=== PATIENT | male | born 1985 | race Caucasian/White ===

== ENCOUNTER 2017-01-30 10:46 | Emergency (ER) | payer SELFPAY ==
[~2017-01-30] VITALS: Ht 180.3 cm; Wt 75.0 kg
[~2017-01-30 10:46] MED LIST: BACT800T5 PO; CEPH500C3 PO; IBUP800T23 PO
[2017-01-30 10:50] VITALS: BP 162/88; PULSE 82; RESP 12; TEMP 98.8; O2SAT 95
[2017-01-30] MEDS ORDERED: SODIUM CHLOR 0.9% 1000 ML INJ 1,000 ML IV ONE (11:17)
[2017-01-30] MEDS ORDERED: ONDANSETRON HCL 4 MG/2 ML VIAL IVP ONE (11:30)
[2017-01-30] MEDS ORDERED: SODIUM CHLORIDE 0.9% FLUSH 10 ML FLUSH IVF PRN (11:30)
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
[2017-01-30 11:32] VITALS: BP 142/81; PULSE 75; RESP 12; TEMP 98.1; O2SAT 96
[2017-01-30 12:00] LABS: AUTOMATED NEUTROPHIL # 8.3 TH/MM3 (1.8-7.7); BASOPHIL % 0.2 % (0.0-2.0); EOSINOPHIL # 0.6 TH/MM3 (0-0.4); EOSINOPHIL % 4.8 % (0.0-4.0); HEMATOCRIT 38.5 % (39.0-51.0); HEMO FLAGS DIFF FINAL; LYMPH % 15.2 % (9.0-44.0); LYMPHOCYTE # 1.8 TH/MM3 (1.0-4.8); MEAN CELL VOLUME 92.1 FL (80.0-100.0); MEAN CORPUSCULAR HGB CONC 35.8 % (32.0-36.0); NEUT % 68.8 % (16.0-70.0); PLATELET COUNT 209 TH/MM3 (150-450); RED BLOOD COUNT 4.18 MIL/MM3 (4.50-5.90); RED CELL DISTRIBUTION WIDTH 12.6 % (11.6-17.2); WHITE BLOOD COUNT 12.1 TH/MM3 (4.0-11.0)
--- NOTE | 2017-01-30 12:09 | RADRPT ---
EXAM DATE/TIME: 01/30/2017 11:30 [facility] COMPARISON: CHEST SINGLE AP, September 10, 2015, 5:20. INDICATIONS : Shortness of breath. MEDICAL HISTORY : None. SURGICAL HISTORY : None. ENCOUNTER: Initial ACUITY: 1 day PAIN SCORE: Non-responsive. LOCATION: Bilateral chest FINDINGS: A single view of the chest demonstrates the lungs to be symmetrically aerated without evidence of mas s, infiltrate or effusion. The cardiomediastinal contours are unremarkable. Osseous structures are intact. CONCLUSION: No acute disease. Angus Villarreal MD on January 30, 2017 at 12:07 Board Certified Radiologist. This report was verified electronically.
[2017-01-30 12:23] LABS: ANION GAP 5 MEQ/L (5-15); AST (GOT) 119 U/L (15-37); BICARBONATE 31.1 MEQ/L (21.0-32.0); BLOOD UREA NITROGEN 12 MG/DL (7-18); CHLORIDE 92 MEQ/L (98-107); GLOMERULAR FILTRATION RATE 101 ML/MIN (>89); POTASSIUM 3.3 MEQ/L (3.5-5.1); SODIUM (NA) 128 MEQ/L (136-145)
[2017-01-30 12:24] LABS: ALT (GPT) 135 U/L (12-78)
[2017-01-30 12:26] LABS: ALKALINE PHOSPHATASE 60 U/L (45-117); TOTAL BILIRUBIN ADULT 0.8 MG/DL (0.2-1.0)
[2017-01-30 12:43] LABS: ACETAMINOPHEN LESS THAN 3.0 MCG/ML (10.0-30.0); ALCOHOL LESS THAN 3 MG/DL (0-5)
[2017-01-30 12:53] LABS: BLOOD, URINE NEG (NEG); GLUCOSE,URINE NEG (NEG); KETONE, URINE NEG (NEG); MUCUS URINE FEW /lpf (OCC); NITRITE,URINE NEG (NEG); PH, URINE 5.5 (5.0-8.5); URINE COLOR YELLOW (YELLW/STRAW)
[2017-01-30 12:55] LABS: COMMENT (UR) CULT NOT INDICATED; CULTURE IF INDICATED CULT NOT INDICATED
[2017-01-30] MEDS ORDERED: POTASSIUM CHLOR 20 MEQ PREMIX 100 ML IV ONE (13:00)
--- NOTE | 2017-01-30 13:51 | PD ---
Data Data Last Documented VS Vital Signs Date Time Temp Pulse Resp B/P Pulse Ox O2 Delivery O2 Flow Rate FiO2 01/30/17 11:34 78 12 01/30/17 11:33 96 Nasal Cannula 2 01/30/17 11:32 98.1 142/81 Orders Electrocardiogram (01/30/17 11:17) Complete Blood Count With Diff (01/30/17 11:17) Comprehensive Metabolic Panel (01/30/17 11:17) Urinalysis - C+S If Indicated (01/30/17 11:17) Chest, Single Ap (01/30/17 11:17) Iv Access Insert/Monitor (01/30/17 11:17) Cath For Specimen (01/30/17 11:17) Ecg Monitoring (01/30/17 11:17) Oximetry (01/30/17 11:17) Oxygen Administration (01/30/17 11:17) Psych Screen (01/30/17 11:17) Ondansetron Inj (Zofran Inj) (01/30/17 11:30) Sodium Chloride 0.9% Flush (Ns Flush) (01/30/17 11:30) Sodium Chlor 0.9% 1000 Ml Inj (Ns 1000 M (01/30/17 11:17) Drug Screen, Random Urine (01/30/17 11:17) Alcohol (Ethanol) (01/30/17 11:17) Salicylates (Aspirin) (01/30/17 11:17) Tylenol (Acetaminophen) (01/30/17 11:17) Diet Regular Basic (01/30/17 Lunch) Potassium Chlor 20 Meq Premix (Kcl 20 Me (01/30/17 13:00) Blood Culture (01/30/17 12:47) Labs Laboratory Tests Test 01/30/17 01/30/17 11:46 12:10 White Blood Count 12.1 TH/MM3 Red Blood Count 4.18 MIL/MM3 Hemoglobin 13.8 GM/DL Hematocrit 38.5 % Mean Corpuscular Volume 92.1 FL Mean Corpuscular Hemoglobin 33.0 PG Mean Corpuscular Hemoglobin 35.8 % Concent Red Cell Distribution Width 12.6 % Platelet Count 209 TH/MM3 Mean Platelet Volume 8.9 FL Neutrophils (%) (Auto) 68.8 % Lymphocytes (%) (Auto) 15.2 % Monocytes (%) (Auto) 11.0 % Eosinophils (%) (Auto) 4.8 % Basophils (%) (Auto) 0.2 % Neutrophils # (Auto) 8.3 TH/MM3 Lymphocytes # (Auto) 1.8 TH/MM3 Monocytes # (Auto) 1.3 TH/MM3 Eosinophils # (Auto) 0.6 TH/MM3 Basophils # (Auto) 0.0 TH/MM3 CBC Comment DIFF FINAL Differential Comment Sodium Level 128 MEQ/L Potassium Level 3.3 MEQ/L Chloride Level 92 MEQ/L Carbon Dioxide Level 31.1 MEQ/L Anion Gap 5 MEQ/L Blood Urea Nitrogen 12 MG/DL Creatinine 0.88 MG/DL Estimat Glomerular Filtration 101 ML/MIN Rate Random Glucose 106 MG/DL Calcium Level 8.4 MG/DL Total Bilirubin 0.8 MG/DL Aspartate Amino Transf 119 U/L (AST/SGOT) Alanine Aminotransferase 135 U/L (ALT/SGPT) Alkaline Phosphatase 60 U/L Total Protein 7.4 GM/DL Albumin 3.7 GM/DL Salicylates Level LESS THAN 1.7 MG/DL Acetaminophen Level LESS THAN 3.0 MCG/ML Ethyl Alcohol Level LESS THAN 3 MG/DL Urine Color YELLOW Urine Turbidity CLEAR Urine pH 5.5 Urine Specific [place] 1.045 Urine Protein 30 mg/dL Urine Glucose (UA) NEG mg/dL Urine Ketones NEG mg/dL Urine Occult Blood NEG Urine Nitrite NEG Urine Bilirubin NEG Urine Urobilinogen LESS THAN 2.0 MG/DL Urine Leukocyte Esterase NEG Urine RBC 1 /hpf Urine WBC 2 /hpf Urine Mucus FEW /lpf Microscopic Urinalysis Comment CULT NOT INDICATED Urine Opiates Screen POS Urine Barbiturates Screen NEG Urine Amphetamines Screen NEG Urine Benzodiazepines Screen NEG Urine Cocaine Screen POS Urine Cannabinoids Screen NEG MDM Supervised Visit with ALFREDITO: Yes Narrative Course The history, exam, and medical decision-making in the associated mid-level provider note were completed with my assistance. I reviewed and agree with the findings presented. I attest that I had a [id number] encounter with the patient on the same day, and personally performed and documented my assessment and findings in the medical record. *My assessment and Findings: 31-year-old man, suicidal recent illicit drug use, little bit sedated but stable. Medically clear for psychiatric evaluation. Diagnosis Primary Impression: Medical clearance for psychiatric admission Additional Impressions: Substance abuse Cocaine abuse Suicidal thoughts Scripts No Active Prescriptions or Reported Meds Condition: Ilia Webster MD Jan 30, 2017 13:51
[2017-01-30 14:15] VITALS: BP 126/80; PULSE 79; RESP 14; O2SAT 100
[2017-01-30 17:13] VITALS: BP 137/75; PULSE 78; RESP 18; O2SAT 98
[2017-01-30 19:25] VITALS: BP 127/63; PULSE 72; RESP 16; O2SAT 97
[2017-01-30 22:41] VITALS: BP 123/59; PULSE 63; RESP 14; O2SAT 97
[2017-01-31 03:25] VITALS: BP 123/60; PULSE 55; RESP 16; O2SAT 97
[2017-01-31 06:19] VITALS: BP 130/67; PULSE 56; RESP 16; O2SAT 100
[2017-01-31 07:20] VITALS: BP 123/60; PULSE 60; RESP 16; O2SAT 98
--- NOTE | 2017-01-31 17:59 | EKG ---
Date Performed: 01/30/2017 Time Performed: 11:40:53 PTAGE: 31 years EKG: Sinus rhythm POSSIBLE RIGHT VENTRICULAR CONDUCTION DELAY NONSPECIFIC T-WAVE ABNORMALITY Anterior T wave abnormali ties are significantly changed from prior tracing Clinical correlation is recommended BORDERLINE ECG PREVIOUS TRACING : 09/19/2015 12.36 DOCTOR: Shai Quintanilla Interpretating Date/Time 01/31/2017 17:57:56
== END 2017-01-31 10:43 | disposition home or self-care (01) ==
LOC: NEPD 10:46
DX: F14.10 Cocaine abuse, uncomplicated (principal); F19.10 Other psychoactive substance abuse, uncomplicated; R45.851 Suicidal ideations; D72.829 Elevated white blood cell count, unspecified; F31.9 Bipolar disorder, unspecified; F41.9 Anxiety disorder, unspecified; R94.31 Abnormal electrocardiogram [ECG] [EKG]; F17.200 Nicotine dependence, unspecified, uncomplicated
CPT/HCPCS: 71010; 80053; 80307; 81001; 85025; 87040; 93005; 96361; 96365; 96375; 99285; J2405; J3480; J7030; P9612

== ENCOUNTER 2017-04-23 11:27 | Emergency (ER) | payer SELFPAY ==
[~2017-04-23] VITALS: Ht 175.3 cm; Wt 60.0 kg
[2017-04-23 11:44] VITALS: BP 135/90; PULSE 92; RESP 18; TEMP 97.8; O2SAT 98; O2SAT 99
[2017-04-23] MEDS ORDERED: NALOXONE HCL 2 MG/2 ML VIAL IM ONE (11:45)
[2017-04-23] MEDS ORDERED: SODIUM CHLORIDE 0.9% FLUSH 10 ML FLUSH IVF PRN (11:45)
[2017-04-23] MEDS ORDERED: NALOXONE HCL 2 MG/2 ML VIAL ONE (11:45)
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
[2017-04-23 12:08] LABS: AUTOMATED NEUTROPHIL # 6.4 TH/MM3 (1.8-7.7); BASOPHIL % 0.4 % (0.0-2.0); EOSINOPHIL # 0.2 TH/MM3 (0-0.4); EOSINOPHIL % 1.8 % (0.0-4.0); HEMATOCRIT 43.1 % (39.0-51.0); HEMO FLAGS DIFF FINAL; LYMPH % 17.4 % (9.0-44.0); LYMPHOCYTE # 1.5 TH/MM3 (1.0-4.8); MEAN CELL VOLUME 93.8 FL (80.0-100.0); MEAN CORPUSCULAR HEMOGLOBIN 32.3 PG (27.0-34.0); MEAN CORPUSCULAR HGB CONC 34.5 % (32.0-36.0); MONO % 7.9 % (0.0-8.0); NEUT % 72.5 % (16.0-70.0); PLATELET COUNT 205 TH/MM3 (150-450); RED BLOOD COUNT 4.59 MIL/MM3 (4.50-5.90); RED CELL DISTRIBUTION WIDTH 12.5 % (11.6-17.2); WHITE BLOOD COUNT 8.9 TH/MM3 (4.0-11.0)
[2017-04-23 12:33] LABS: ANION GAP 9 MEQ/L (5-15); BICARBONATE 26.7 MEQ/L (21.0-32.0); BLOOD UREA NITROGEN 10 MG/DL (7-18); CHLORIDE 102 MEQ/L (98-107); GLOMERULAR FILTRATION RATE 88 ML/MIN (>89); POTASSIUM 3.4 MEQ/L (3.5-5.1); SODIUM (NA) 138 MEQ/L (136-145)
[2017-04-23 12:36] LABS: ALCOHOL LESS THAN 3 MG/DL (0-5)
== END 2017-04-23 21:30 | disposition left against medical advice (07) ==
LOC: NEPC 11:27
DX: F11.10 Opioid abuse, uncomplicated (principal); F17.200 Nicotine dependence, unspecified, uncomplicated
CPT/HCPCS: 80048; 80307; 85025; 96372; 99284; J2310

== ENCOUNTER 2017-09-23 02:46 | Emergency (ER) | payer OTHER ==
[~2017-09-23] VITALS: Ht 180.3 cm; Wt 77.2 kg
[2017-09-23 03:01] VITALS: BP 153/85; PULSE 87; RESP 20; TEMP 98; O2SAT 98
[2017-09-23] MEDS ORDERED: CEPHALEXIN MONOHYDRATE 500 MG CAP PO ONE (03:30)
[2017-09-23] MEDS ORDERED: SULFAMETHOXAZOLE-TRIMETHOPRIM DS 800-160 MG TAB PO ONE (03:30)
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
--- NOTE | 2017-09-23 05:25 | RADRPT ---
EXAM DATE/TIME: 09/23/2017 04:26 [facility] COMPARISON: No previous studies available for comparison. INDICATIONS : Left arm swelling. MEDICAL HISTORY : Hepatitis C. Prostatitis. Urinary retention. Bipolar disorder. Anxiety. IVDU. SURGICAL HISTORY : Right leg wound repair. Facial repair. ENCOUNTER: Initial ACUITY: 1 day PAIN SCORE: 6/10 LOCATION: Left arm. AREA EVALUATED: Left medial prox forearm. FINDINGS: MASSES: None. FLUID COLLECTIONS: None. OTHER: Negative. CONCLUSION: No evidence of abscess Chris Darby MD on September 23, 2017 at 5:22 Board Certified Radiologist. This report was verified electronically.
[2017-09-23] MEDS ORDERED: IBUP1TAB7 PO (05:36)
[2017-09-23] MEDS ORDERED: CEPH-460 PO (05:36)
--- NOTE | 2017-09-23 05:36 | PD ---
Data Data Last Documented VS Vital Signs Date Time Temp Pulse Resp B/P (MAP) Pulse Ox O2 Delivery O2 Flow Rate FiO2 09/23/17 03:01 98.0 87 20 153/85 (107) 98 Orders Orders Us Arm Soft Tissue (09/23/17 ) Sulfamet-Trimeth Ds 800-160 Mg (Bactrim (09/23/17 03:30) Cephalexin (Keflex) (09/23/17 03:30) Ed Discharge Order (09/23/17 05:36) MDM Supervised Visit with ALFREDITO: Yes Narrative Course I, Dr. Fields, have reviewed the advance practice practitioner's documentation and am in agreement, met with the patient face to face, made the diagnosis, and the medical decision making was done by me. *My assessment and Findings: Patient had been seen by me in addition to Kimberly LEBRON, the patient has some acute onset swelling after injecting himself with IV drugs tonight. I do not appreciate this is an abscess and aneurysm or pseudoaneurysm likely this is hematoma from some minor blood vessel damage. Pulses motor and sensory intact distally in all 4 extremities. Ultrasound is reassuring. Discussed symptomatic management return to ED criteria. He is stable for discharge. Scripts Ibuprofen (Ibuprofen) 800 Mg Tab 800 MG PO Q6HR Y for PAIN, #40 TAB 0 Refills Prov: Kimberly Chance 09/23/17 Cephalexin (Keflex) 500 Mg Cap 500 MG PO Q12H for Infection for 7 Days, #14 CAP 0 Refills Prov: Kimberly Chance 09/23/17 Disposition: 01 DISCHARGE HOME Condition: Stable Gil Fields MD Sep 23, 2017 05:36
== END 2017-09-23 05:45 | disposition home or self-care (01) ==
LOC: NEPD 02:46
DX: T14.8XXA Other injury of unspecified body region, initial encounter (principal); M79.632 Pain in left forearm; M79.605 Pain in left leg; F14.10 Cocaine abuse, uncomplicated; F11.10 Opioid abuse, uncomplicated; X58.XXXA Exposure to other specified factors, initial encounter
CPT/HCPCS: 76882

== ENCOUNTER 2017-09-23 22:46 | Emergency (ER) | payer OTHER ==
[~2017-09-23] VITALS: Ht 180.3 cm; Wt 77.0 kg
[~2017-09-23 22:46] MED LIST changes: -BACT800T5 PO; +CEPH-460 PO; -CEPH500C3 PO; +IBUP1TAB7 PO; -IBUP800T23 PO
[2017-09-23 23:48] VITALS: BP 163/89; PULSE 97; RESP 20; TEMP 98.2; O2SAT 97
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
[2017-09-24] MEDS ORDERED: SODIUM CHLORIDE 0.9% FLUSH 10 ML FLUSH IV FLUSH PRN (00:30)
[2017-09-24 00:35] LABS: AUTOMATED NEUTROPHIL # 7.7 TH/MM3 (1.8-7.7); BASOPHIL % 0.4 % (0.0-2.0); EOSINOPHIL # 0.7 TH/MM3 (0-0.4); EOSINOPHIL % 6.5 % (0.0-4.0); HEMATOCRIT 40.9 % (39.0-51.0); HEMOGLOBIN 14.2 GM/DL (13.0-17.0); LYMPH % 16.9 % (9.0-44.0); LYMPHOCYTE # 1.9 TH/MM3 (1.0-4.8); MEAN CELL VOLUME 90.5 FL (80.0-100.0); MEAN CORPUSCULAR HEMOGLOBIN 31.5 PG (27.0-34.0); MEAN CORPUSCULAR HGB CONC 34.8 % (32.0-36.0); MEAN PLATELET VOLUME 8.2 FL (7.0-11.0); MONO % 6.8 % (0.0-8.0); MONOCYTE # 0.8 TH/MM3 (0-0.9); NEUT % 69.4 % (16.0-70.0); PLATELET COUNT 221 TH/MM3 (150-450); RED BLOOD COUNT 4.52 MIL/MM3 (4.50-5.90); RED CELL DISTRIBUTION WIDTH 13.3 % (11.6-17.2); WHITE BLOOD COUNT 11.1 TH/MM3 (4.0-11.0)
[2017-09-24 00:44] LABS: PROTHROMBIN TIME - PATIENT 10.5 SEC (9.8-11.6)
[2017-09-24 00:52] LABS: BICARBONATE 30.1 MEQ/L (21.0-32.0); CREATININE 1.11 MG/DL (0.60-1.30)
[2017-09-24] MEDS ORDERED: IOHEXOL 350 MG/ML 10 ML VIAL (for RAD DIAG) IVCONTRAST ONE (00:55)
--- NOTE | 2017-09-24 02:00 | RADRPT ---
EXAM DATE/TIME: 09/24/2017 01:42 [facility] COMPARISON: No previous studies available for comparison. INDICATIONS : Left medial elbow pain and swelling. Possible foreign body. MEDICAL HISTORY : None. SURGICAL HISTORY : None. ENCOUNTER: Initial ACUITY: 1 day PAIN SCORE: 8/10 LOCATION: Left elbow. FINDINGS: There is a slightly less than 1 cm long needle fragment retained in the medial volar soft tissues of the left elbow region just superficial to the distal aspect of the medial epicondyle. The underlying bony elements are intact. There is mild soft tissue swelling. CONCLUSION: Needle in the superficial soft tissues of the medial volar left elbow Chris Darby MD on September 24, 2017 at 1:56 Board Certified Radiologist. This report was verified electronically.
--- NOTE | 2017-09-24 02:02 | RADRPT ---
EXAM DATE/TIME: 09/24/2017 00:47 [facility] COMPARISON: No previous studies available for comparison. INDICATIONS : Left arm swelling. Evaluate for abscess. IV CONTRAST: 75 cc Omnipaque 350 (iohexol) IV RADIATION DOSE: 4.97 CTDIvol (mGy) MEDICAL HISTORY : Hepatitis C. IV drug abuse. SURGICAL HISTORY : None. ENCOUNTER: Initial ACUITY: 1 week PAIN SCALE: 10/10 LOCATION: Left elbow. TECHNIQUE: Volumetric scanning of the elbow was performed. Using automated exposure control and adjustment of t he mA and/or kV according to patient size, radiation dose was kept as low as reasonably achievable to obtain optimal diagnostic quality images. DICOM format image data is available electronically for r eview and comparison. FINDINGS: BONES: No evidence of fracture. Alignment is within normal limits. JOINTS: No evidence of joint narrowing or effusion. SOFT TISSUES: There is a needle in the superficial subcutaneous tissues of the medial volar elbow region at about t he level of the distal aspect of the medial upper condyle. There is prominent cellulitic change in th e soft tissues in this region and extending down into the forearm. No evidence of abscess. CONCLUSION: Foreign body and cellulitis. No abscess. Chris Darby MD on September 24, 2017 at 1:58 Board Certified Radiologist. This report was verified electronically.
[2017-09-24] MEDS ORDERED: PIPERACIL-TAZO 4.5 GM PREMIX 100 ML IV ONE (02:15)
[2017-09-24] MEDS ORDERED: VANCOMYCIN INJ 1,000 MG in SODIUM CHLOR 0.9% 250 ML INJ 250 ML IV ONE (02:15)
== END 2017-09-24 02:20 | disposition left against medical advice (07) ==
LOC: NEPE 22:46
DX: M79.5 Residual foreign body in soft tissue (principal); L03.113 Cellulitis of right upper limb; F17.200 Nicotine dependence, unspecified, uncomplicated; F14.10 Cocaine abuse, uncomplicated; F11.10 Opioid abuse, uncomplicated
CPT/HCPCS: 73070; 73201; 80048; 83605; 85025; 85610; 85730; 96374; 99285; J2543; Q9967

== ENCOUNTER 2017-09-24 22:29 | Inpatient (IN) | payer OTHER ==
[~2017-09-24] VITALS: Ht 180.3 cm; Wt 72.0 kg
[2017-09-24 22:57] VITALS: BP 151/66; PULSE 86; RESP 15; TEMP 98; O2SAT 97
[2017-09-25] VITALS (10 sets, daily range): BP systolic 126–157; BP diastolic 6–87; PULSE 62–95; RESP 12–20; TEMP 97.4–98.7; O2SAT 92–100
[2017-09-25] MEDS ORDERED: SODIUM CHLOR 0.9% 1000 ML INJ 1,000 ML IV ONE (00:54)
[2017-09-25] MEDS ORDERED: PIPERACIL-TAZO 4.5 GM PREMIX 100 ML IV ONE (01:00)
[2017-09-25] MEDS ORDERED: VANCOMYCIN INJ 1,000 MG in SODIUM CHLOR 0.9% 250 ML INJ 250 ML IV ONE (01:00)
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
[2017-09-25 02:48] LABS: AUTOMATED NEUTROPHIL # 4.4 TH/MM3 (1.8-7.7); BASOPHIL # 0.1 TH/MM3 (0-0.2); BASOPHIL % 0.7 % (0.0-2.0); EOSINOPHIL # 0.8 TH/MM3 (0-0.4); EOSINOPHIL % 9.5 % (0.0-4.0); HEMATOCRIT 39.1 % (39.0-51.0); HEMOGLOBIN 13.3 GM/DL (13.0-17.0); LYMPH % 23.8 % (9.0-44.0); LYMPHOCYTE # 1.9 TH/MM3 (1.0-4.8); MEAN CELL VOLUME 91.2 FL (80.0-100.0); MEAN CORPUSCULAR HEMOGLOBIN 30.9 PG (27.0-34.0); MEAN CORPUSCULAR HGB CONC 33.9 % (32.0-36.0); MEAN PLATELET VOLUME 8.6 FL (7.0-11.0); MONO % 12.1 % (0.0-8.0); NEUT % 53.9 % (16.0-70.0); PLATELET COUNT 248 TH/MM3 (150-450); RED BLOOD COUNT 4.29 MIL/MM3 (4.50-5.90); RED CELL DISTRIBUTION WIDTH 14.1 % (11.6-17.2); WHITE BLOOD COUNT 8.1 TH/MM3 (4.0-11.0)
[2017-09-25 03:03] LABS: INTERNATIONAL NORMALIZED RATIO 1.1 RATIO; PROTHROMBIN TIME - PATIENT 10.7 SEC (9.8-11.6)
[2017-09-25 03:12] LABS: ALBUMIN 3.3 GM/DL (3.4-5.0); ALT (GPT) 140 U/L (12-78); AST (GOT) 79 U/L (15-37); BICARBONATE 29.9 MEQ/L (21.0-32.0); BLOOD UREA NITROGEN 15 MG/DL (7-18); CHLORIDE 103 MEQ/L (98-107); CREATININE 1.09 MG/DL (0.60-1.30); GLOMERULAR FILTRATION RATE 78 ML/MIN (>89); GLUCOSE,RANDOM 115 MG/DL (74-106); SODIUM (NA) 140 MEQ/L (136-145)
[2017-09-25 03:15] LABS: ALKALINE PHOSPHATASE 67 U/L (45-117); TOTAL BILIRUBIN ADULT 0.4 MG/DL (0.2-1.0); TOTAL PROTEIN 7.9 GM/DL (6.4-8.2)
[2017-09-25] MEDS ORDERED: MAGNESIUM HYDROXIDE SUSP 30 ML CUP PO PRN (03:30)
[2017-09-25] MEDS ORDERED: SODIUM CHLORIDE 0.9% FLUSH 10 ML FLUSH IV FLUSH PRN (03:30)
[2017-09-25] MEDS ORDERED: BISACODYL 10 MG SUPP RECTAL PRN (03:30)
[2017-09-25] MEDS ORDERED: ONDANSETRON HCL 4 MG/2 ML VIAL IVP PRN (03:30)
[2017-09-25] MEDS ORDERED: SENNOSIDES 8.6 MG TAB PO PRN (03:30)
[2017-09-25] MEDS ORDERED: ACETAMINOPHEN 325 MG TAB PO PRN (03:30)
[2017-09-25] MEDS ORDERED: NALOXONE HCL 0.4 MG/ML AMP IV PUSH PRN (03:30)
[2017-09-25] MEDS ORDERED: Vancomycin Consult Pharmacy 1 EA OTHER SCH (03:30)
[2017-09-25] MEDS ORDERED: LACTULOSE SYRUP 20 GM/30 ML CUP PO PRN (03:30)
[2017-09-25] MEDS: SODIUM CHLOR 0.9% 1000 ML INJ 1,000 ML IV SCH ×3 (04:57→23:13)
[2017-09-25] MEDS: SODIUM CHLORIDE 0.9% FLUSH 10 ML FLUSH IV FLUSH SCH ×2 (09:09→23:13)
[2017-09-25] MEDS: PIPERACIL-TAZO 3.375 GM PREMIX 50 ML IV SCH ×3 (09:11→18:17)
--- NOTE | 2017-09-25 11:54 | HHI.HP ---
HPI Service [facility] Hospitalists Primary Care Physician No Primary Care Physician Admission Diagnosis Left forearm cellulitis with foreign body, IV drug abuse Diagnoses: Chief Complaint: Left arm pain, swelling, redness Travel History International Travel<30 Days: No Contact w/Intl Traveler <30 Da: No Traveled to Known Affected Are: No History of Present Illness Written by Liberty Heredia, acting as scribe for Dr. Babin on 09/25/17 at 11: 46. This is a 32yo male with PMHX of IVDU, previous staph infection, Hep C and bipolar disorder who presented to [facility] ED with complaints of left arm swelling, redness and pain x 4 days. He describes the pain as constant sharpness as well as deep throbbing ache. Apparently, patient was seen in the ED yesterday and diagnosed with a retained needle in the left forearm as well as cellulitis. He was advised to be admitted for IV antibiotics at that time but however decided to leave AMA.. He has returned today for IV antibiotic therapy and possible admission. He endorses fever. He reports chest pain and shortness of breath that he attributes to anxiety. On the ED yesterday, patient has CT of left forearm performed which revealed foreign body as well as cellulitis, no abscess. Review of Systems Except as stated in HPI: all other systems reviewed are Neg Past Family Social History Past Medical History Left hand cellulitis secondary to IVDU Hepatitis C Bipolar disorder History of previous staph infection Past Surgical History Left hand surgery for cellulitis Reported Medications No Active Prescriptions or Reported Medications Allergies: Coded Allergies: No Known Allergies (Unverified , 09/25/17) Active Ordered Medications Current Medications Medications (Trade) Dose Ordered Sig/Domo Route Start Time Stop Time Status Last Admin Piperacillin Sod/ Tazobactam Sod 50 ml @ 100 mls/hr Q6H IV 09/25/17 07:00 09/25/17 09:11 Pharmacy Profile Note 0 ml @ 0 mls/hr UNSCH OTHER 09/25/17 03:30 Sodium Chloride 1,000 ml @ 100 mls/hr Q10H IV 09/25/17 03:30 09/25/17 04:57 (NS Flush) 2 ml UNSCH PRN IV FLUSH 09/25/17 03:30 (NS Flush) 2 ml BID IV FLUSH 09/25/17 09:00 09/25/17 09:09 (Tylenol) 650 mg Q4H PRN PO 09/25/17 03:30 (Zofran Inj) 4 mg Q6H PRN IVP 09/25/17 03:30 (Narcan Inj) 0.4 mg UNSCH PRN IV PUSH 09/25/17 03:30 (Darcie-Colace) 1 tab BID PO 09/25/17 09:00 (Milk Of Magnesia Liq) 30 ml Q12H PRN PO 09/25/17 03:30 (Senokot) 17.2 mg Q12H PRN PO 09/25/17 03:30 (Dulcolax Supp) 10 mg DAILY PRN RECTAL 09/25/17 03:30 (Lactulose Liq) 30 ml DAILY PRN PO 09/25/17 03:30 Vancomycin HCl 1000 mg/Sodium Chloride 250 ml @ 250 mls/hr Q12H IV 09/25/17 13:00 Miscellaneous Information SPECIFIC LAB TO BE DRAWN:VANCOMY... ONCE ONCE .XX 09/26/17 12:45 09/26/17 12:46 Family History Mother, DM Social History He reports tobacco use of 1ppd x 15years. He denies any EtOH use. He admits to IV drug use. He was clean for 2 years but relapsed recently. He is actively shooting up cocaine, crack and heroin. Physical Exam Vital Signs Vital Signs Date Time Temp Pulse Resp B/P (MAP) Pulse Ox O2 Delivery O2 Flow Rate FiO2 09/25/17 11:30 97.8 66 18 130/60 (83) 98 09/25/17 07:34 98.0 63 16 130/67 (88) 98 09/25/17 06:10 09/25/17 06:00 62 14 148/78 (101) 100 Nasal Cannula 2.00 09/25/17 05:01 65 13 157/80 (105) 92 Nasal Cannula 2.00 09/25/17 04:30 62 12 146/79 (101) Room Air 09/25/17 03:30 64 12 147/87 (107) 98 Room Air 09/25/17 02:30 76 12 154/75 (101) 99 Room Air 09/24/17 22:57 98.0 86 15 151/66 (94) 97 Physical Exam GENERAL: This is a well-nourished, well-developed male patient, in no apparent distress. Awake and alert. SKIN: Warm and dry. Left forearm warm, edematous and erythematous extending into the hand with tenderness to palpation over inner aspect with induration. No fluctuance appreciated. Left forearm compartment supple. HEAD: Atraumatic. Normocephalic. No temporal or scalp tenderness. EYES: Pupils equal round and reactive. Extraocular motions intact. No scleral icterus. No injection or drainage. ENT: Nose without bleeding or purulent drainage. Throat without erythema, tonsillar hypertrophy or exudate. Uvula midline. Airway patent. NECK: Trachea midline. No lymphadenopathy. Supple, nontender, no meningeal signs. CARDIOVASCULAR: Regular rate and rhythm without murmurs, gallops, or rubs. RESPIRATORY: Clear to auscultation. Breath sounds equal bilaterally. No wheezes , rales, or rhonchi. GASTROINTESTINAL: Abdomen soft, non-tender, nondistended. No hepato-splenomegaly , or palpable masses. No guarding. MUSCULOSKELETAL: Extremities without clubbing, cyanosis, or edema. No joint tenderness, effusion, or edema noted. No calf tenderness. NEUROLOGICAL: Awake and alert. Cranial nerves II through XII grossly intact. Motor and sensory grossly within normal limits. Five out of 5 muscle strength in all muscle groups. Normal speech. Laboratory Laboratory Tests Test 09/25/17 02:02 09/25/17 02:05 White Blood Count 8.1 Red Blood Count 4.29 Hemoglobin 13.3 Hematocrit 39.1 Mean Corpuscular Volume 91.2 Mean Corpuscular Hemoglobin 30.9 Mean Corpuscular Hemoglobin Concent 33.9 Red Cell Distribution Width 14.1 Platelet Count 248 Mean Platelet Volume 8.6 Neutrophils (%) (Auto) 53.9 Lymphocytes (%) (Auto) 23.8 Monocytes (%) (Auto) 12.1 Eosinophils (%) (Auto) 9.5 Basophils (%) (Auto) 0.7 Neutrophils # (Auto) 4.4 Lymphocytes # (Auto) 1.9 Monocytes # (Auto) 1.0 Eosinophils # (Auto) 0.8 Basophils # (Auto) 0.1 CBC Comment DIFF FINAL Differential Comment Prothrombin Time 10.7 Prothromb Time International Ratio 1.1 Activated Partial Thromboplast Time 29.5 Blood Urea Nitrogen 15 Creatinine 1.09 Random Glucose 115 Total Protein 7.9 Albumin 3.3 Calcium Level 9.0 Alkaline Phosphatase 67 Aspartate Amino Transf (AST/SGOT) 79 Alanine Aminotransferase (ALT/SGPT) 140 Total Bilirubin 0.4 Sodium Level 140 Potassium Level 3.7 Chloride Level 103 Carbon Dioxide Level 29.9 Anion Gap 7 Estimat Glomerular Filtration Rate 78 Lactic Acid Level 1.2 Date/Time Source Procedure Growth Status 09/25/17 02:10 Blood Peripheral Aerobic Blood Culture Pending Received 09/25/17 02:10 Blood Peripheral Anaerobic Blood Culture Pending Received Result Diagram: 09/25/1720109/25/17 020 Caprinvianey VTE Risk Assessment Caprini VTE Risk Assessment: No/Low Risk (score <= 1) VTE Pharm Contraindication: Postop bleeding Caprini Risk Assessment Model Point Value = 1 Point Value = 2 Point Value = 3 Point Value = 5 Age 41-60 Minor surgery BMI > 25 kg/m2 Swollen legs Varicose veins or History of unexplained or recurrent spontaneous Oral contraceptives or hormone replacement Sepsis (< 1 month) Serious lung disease, including pneumonia (< 1 month) Abnormal pulmonary function Acute myocardial infarction Congestive heart failure (< 1 month) History of inflammatory bowel disease Medical patient at bed rest Age 61-74 Arthroscopic surgery Major open surgery (> 45 min) Laparoscopic surgery (> 45 min) Malignancy Confined to bed (> 72 hours) Immobilizing plaster cast Central venous access Age >= 75 History of VTE Family history of VTE Factor V Leiden Prothrombin [id number] Lupus anticoagulant Anticardiolipin antibodies Elevated serum homocysteine Heparin-induced thrombocytopenia Other congenital or acquired thrombophilia Stroke (< 1 month) Elective arthroplasty Hip, pelvis, or leg fracture Acute spinal cord injury (< 1 month) Prophylaxis Regimen Total Risk Factor Score Risk Level Prophylaxis Regimen 0-1 Low Early ambulation 2 Moderate Order ONE of the following: *Sequential Compression Device (SCD) *Heparin 5000 units SQ BID 3-4 Higher Order ONE of the following medications: *Heparin 5000 units SQ TID *Enoxaparin/Lovenox 40 mg SQ daily (WT < 150 kg, CrCl > 30 mL/min) *Enoxaparin/Lovenox 30 mg SQ daily (WT < 150 kg, CrCl > 10-29 mL/min) *Enoxaparin/Lovenox 30 mg SQ BID (WT < 150 kg, CrCl > 30 mL/min) AND/OR *Sequential Compression Device (SCD) 5 or more Highest Order ONE of the following medications: *Heparin 5000 units SQ TID (Preferred with Epidurals) *Enoxaparin/Lovenox 40 mg SQ daily (WT < 150 kg, CrCl > 30 mL/min) *Enoxaparin/Lovenox 30 mg SQ daily (WT < 150 kg, CrCl > 10-29 mL/min) *Enoxaparin/Lovenox 30 mg SQ BID (WT < 150 kg, CrCl > 30 mL/min) AND *Sequential Compression Device (SCD) Assessment and Plan Assessment and Plan 32yo male with PMHX of IVDU, previous staph infection, Hep C and bipolar disorder who presented to [facility] ED with complaints of left arm swelling , redness and pain x 4 days. //Left forearm cellulitis with retained needle in the superficial soft tissues of left elbow -xray left elbow shows needle in the superficial soft tissues of the medial volar left elbow, images reviewed by me -CT UE 09/24 revealed a needle in the superficial subcutaneous tissues of the medial volar elbow region at about the level of the distal aspect of the medial upper condyle. There is prominent cellulitic change in the soft tissues in this region and extending down into the forearm. No evidence of abscess, images reviewed by me -started on IV Zosyn and Vancomycin in the ED, continue. Monitor kidney function. -Keep NPO, IVF for hydration -Consult hand surgery, appreciate recommendations -Pain management with bowel regimen //Hep C //Transaminitis -Standard precautions -Monitor LFTs -Avoid hepatotoxic agents //Bipolar disorder -Patient not on any bipolar medications at this time //DVT prophylaxis -Avoid chemoprophylaxis secondary to possible upcoming surgical procedure -bilateral SCD/EDE hose Discussed Condition With patient, nursing staff This note was transcribed by liban Heredia. I, Dr. Brayan Babin personally performed the history, physical exam, and medical decision making; and confirmed the accuracy of the information in the transcribed note. Authenticated by Dr. Brayan Babin on 09/28/17 at 15:02. Liberty Heredia Apr 6, 2018 11:54 Brayan Babin MD Sep 28, 2017 15:02
--- NOTE | 2017-09-25 12:07 | MB ---
cc: Olga Lidia Vera MD DATE: 09/25/2017 DATE OF SERVICE: 09/25/2017 REASON FOR CONSULTATION: Swelling left elbow and forearm with retained foreign body. HISTORY OF PRESENT ILLNESS: Popeye Kurtz is a 32-year-old right hand dominant male with past medical history significant for IV drug use. States that he had a relapse and injected into his left forearm approximately 1 week ago. He is concerned for a retained needle in the left forearm. He denies any fevers or chills. He was seen yesterday in the emergency room but left AMA as he had to take care of his daughter. He denies any paresthesias in the hand. He admits to IV crack, heroin and cocaine use. PAST MEDICAL HISTORY: Bipolar disorder, anxiety, hepatitis C. PAST SURGICAL HISTORY: Right leg repair, facial repair. SOCIAL HISTORY: The patient reports alcohol use. Smokes 1 pack per day. Again, illicit drug use. ALLERGIES: NO KNOWN DRUG ALLERGIES. PHYSICAL EXAMINATION: GENERAL: The patient is alert and oriented x3. EXTREMITIES: Exam of the left forearm shows mild erythema over the medial border of the left forearm. Compartments are soft and compressible. No obvious superficial foreign body. The patient is able flex and extend his fingers, but is unable to completely extend his fingers. Function intact of the FDS and FDP. Sensation intact in the median, ulnar and radial distribution. 2+ radial pulse. LABORATORY DATA: White count 8.1. IMAGING STUDIES: X-ray of the left elbow shows no evidence of fracture. There does appear to be a retained foreign body superficial medially over the forearm. This is confirmed on CT scan without evidence of abscess. ASSESSMENT AND PLAN: A 32-year-old male with past medical history significant for intravenous drug use with possible retained foreign body over the medial left forearm. At this time no indication for surgical intervention. He may be treated with intravenous antibiotics. May also consider general surgery or orthopedic consult. Followup with primary care physician. Olga Lidia Vera MD SE/DELPHINE , 11:44 AM , 12:06 PM [facility]
[2017-09-25] MEDS ORDERED: VANCOMYCIN INJ 1,000 MG in SODIUM CHLOR 0.9% 250 ML INJ 250 ML IV SCH (13:00)
[2017-09-25] MEDS: VANCOMYCIN 1,000 MG/NS 250 ML IV SCH ×2 (13:14)
[2017-09-25] MEDS: DOCUSATE SODIUM 50 MG/SENNA 8.6 MG TAB PO SCH ×2 (13:14→21:00)
[2017-09-26] MEDS: PIPERACIL-TAZO 3.375 GM PREMIX 50 ML IV SCH ×4 (01:20→18:45)
[2017-09-26] MEDS: VANCOMYCIN 1,000 MG/NS 250 ML IV SCH ×4 (01:21→12:59)
[2017-09-26 03:19] VITALS: BP 137/62; PULSE 91; RESP 16; TEMP 97.8; O2SAT 99
[2017-09-26 08:00] VITALS: BP 134/70; PULSE 72; RESP 18; TEMP 98.5; O2SAT 99
[2017-09-26 08:23] LABS: AUTOMATED NEUTROPHIL # 3.8 TH/MM3 (1.8-7.7); BASOPHIL % 0.7 % (0.0-2.0); EOSINOPHIL # 0.4 TH/MM3 (0-0.4); EOSINOPHIL % 6.2 % (0.0-4.0); HEMATOCRIT 43.7 % (39.0-51.0); HEMOGLOBIN 14.7 GM/DL (13.0-17.0); LYMPH % 21.6 % (9.0-44.0); LYMPHOCYTE # 1.3 TH/MM3 (1.0-4.8); MEAN CORPUSCULAR HGB CONC 33.7 % (32.0-36.0); MONO % 8.5 % (0.0-8.0); MONOCYTE # 0.5 TH/MM3 (0-0.9); PLATELET COUNT 257 TH/MM3 (150-450); RED BLOOD COUNT 4.75 MIL/MM3 (4.50-5.90); RED CELL DISTRIBUTION WIDTH 13.4 % (11.6-17.2); WHITE BLOOD COUNT 6.1 TH/MM3 (4.0-11.0)
[2017-09-26 08:48] LABS: BICARBONATE 27.5 MEQ/L (21.0-32.0); CALCIUM 8.9 MG/DL (8.5-10.1); CREATININE 0.96 MG/DL (0.60-1.30)
[2017-09-26] MEDS: DOCUSATE SODIUM 50 MG/SENNA 8.6 MG TAB PO SCH ×2 (09:00→22:44)
[2017-09-26] MEDS: SODIUM CHLORIDE 0.9% FLUSH 10 ML FLUSH IV FLUSH SCH ×2 (10:31→22:44)
--- NOTE | 2017-09-26 10:46 | HHI.PR ---
Subjective Remarks Follow-up visit left forearm cellulitis with foreign body, IVDA. Patient seen and examined today. Reports he has no fevers or chills overnight. Left upper arm pain increased with movement. Continues to have edema and erythema. Requesting when is he going to be going home or will have surgical procedures. Discussed with patient he needs to be seen by general surgery to evaluate whether he needs to have operation. HAnd surgeon has already cleared the patient. Otherwise, denies SOB/ dyspnea. Denies chest pain, palpitations, headaches, dizziness. Denies fevers, chills, n/v/d. Denies dysuria. Objective Vitals Vital Signs Date Time Temp Pulse Resp B/P (MAP) Pulse Ox O2 Delivery O2 Flow Rate FiO2 09/26/17 08:00 98.5 72 18 134/70 (91) 99 09/26/17 03:19 97.8 91 16 137/62 (87) 99 09/25/17 23:10 97.4 95 20 126/84 (98) 99 09/25/17 16:42 98.5 62 18 142/6 (51) 99 09/25/17 14:20 98.7 62 18 137/64 (88) 95 09/25/17 11:30 97.8 66 18 130/60 (83) 98 I/O 09/25/17 09/25/17 09/25/17 09/26/17 09/26/17 09/26/17 07:00 15:00 23:00 07:00 15:00 23:00 Intake Total 1350 ml 1750 ml 300 ml 1200 ml Output Total 450 ml 2040 ml Balance 1350 ml 1750 ml -150 ml -840 ml Intake IV Total 1350 ml 1750 ml 300 ml 1200 ml Output Urine Total 450 ml 2040 ml Result Diagram: 09/26/17 0536 09/26/17 0536 Objective Remarks GENERAL: This is a well-nourished, well-developed patient, in no apparent distress. SKIN: Warm and dry. HEENT: Normocephalic. Pupils equal round and reactive. Nose without bleeding. Airway patent. NECK: Trachea midline. CARDIOVASCULAR: Regular rate and rhythm without murmurs, gallops, or rubs. RESPIRATORY: Clear to auscultation. Breath sounds equal bilaterally. No wheezes , rales, or rhonchi. GASTROINTESTINAL: Abdomen soft, non-tender, nondistended. Bowel Sounds normoactive x4. MUSCULOSKELETAL: Extremities without clubbing, cyanosis. Left forearm brachial site edema and erythema noted, no drainage. Decreased range of motion, pain to palpation. NEUROLOGICAL: Awake and alert. Oriented to time, place, person. No focal neuro deficit. Normal speech. A/P Assessment and Plan 32yo male with PMHX of IVDU, previous staph infection, Hep C and bipolar disorder who presented to [facility] ED with complaints of left arm swelling , redness and pain x 4 days. Left forearm cellulitis with retained needle in the superficial soft tissues of left elbow -xray left elbow shows needle in the superficial soft tissues of the medial volar left elbow, images reviewed by mt -CT UE 09/24 revealed a needle in the superficial subcutaneous tissues of the medial volar elbow region at about the level of the distal aspect of the medial upper condyle. There is prominent cellulitic change in the soft tissues in this region and extending down into the forearm. No evidence of abscess, images reviewed by me -Continue IV Zosyn and Vancomycin in the ED, continue. Monitor kidney function. -Consult hand surgery, appreciate recommendations -hand surgeon recommended at this time no indication for surgical intervention. Continue with antibiotic treatments. May consider general surgery or orthopedic consult. -Re-eavaluate area of cellulitis after IV antibiotics tomorrow, if continues to have pain, induration, erythema, may consider reconsulting hand surgery or orthopedic surgeon -Pain management with bowel regimen Hep C Transaminitis -Standard precautions -Monitor LFTs -Avoid hepatotoxic agents Bipolar disorder -Patient not on any bipolar medications at this time DVT prophylaxis -Avoid chemoprophylaxis secondary to possible upcoming surgical procedure -bilateral SCD/EDE hose Discharge Planning Plan for discharge when clinically improved, cleared by surgery. Bijal Reagan [facility] Sep 26, 2017 10:46
[2017-09-26 12:00] VITALS: BP 155/85; PULSE 68; RESP 18; TEMP 97.6; O2SAT 100
[2017-09-26] MEDS ORDERED: PHARMACY ORDERED LAB ONE (12:45)
[2017-09-26] MEDS: SODIUM CHLOR 0.9% 1000 ML INJ 1,000 ML IV SCH (13:03)
[2017-09-26 16:00] VITALS: BP 115/61; PULSE 62; RESP 18; TEMP 97.9; O2SAT 97
[2017-09-26 20:00] VITALS: BP 133/63; PULSE 75; RESP 16; TEMP 97.9; O2SAT 95
[2017-09-27] MEDS: PIPERACIL-TAZO 3.375 GM PREMIX 50 ML IV SCH ×4 (00:20→17:38)
[2017-09-27] MEDS: VANCOMYCIN INJ 1,250 MG in SODIUM CHLOR 0.9% 250 ML INJ 250 ML IV SCH ×2 (01:31→13:25)
[2017-09-27] MEDS ORDERED: LOPERAMIDE HCL 2 MG CAP PO ONE (02:45)
[2017-09-27] MEDS ORDERED: LOPERAMIDE HCL 2 MG CAP PO PRN (02:45)
[2017-09-27 04:13] VITALS: BP 125/62; PULSE 77; RESP 16; TEMP 97.9; O2SAT 96
[2017-09-27 08:00] VITALS: BP 132/79; PULSE 63; RESP 16; TEMP 97.8; O2SAT 98
--- NOTE | 2017-09-27 10:33 | HHI.PR ---
Subjective Remarks Patient c/o pain left arm expresses frustration that he has not yet had surgery no new complaints Objective Vitals Vital Signs Date Time Temp Pulse Resp B/P (MAP) Pulse Ox O2 Delivery O2 Flow Rate FiO2 09/27/17 08:00 97.8 63 16 132/79 (96) 98 09/27/17 04:13 97.9 77 16 125/62 (83) 96 09/26/17 20:00 97.9 75 16 133/63 (86) 95 09/26/17 16:00 97.9 62 18 115/61 (79) 97 09/26/17 12:00 97.6 68 18 155/85 (108) 100 Result Diagram: 09/26/17 0536 09/26/17 0536 Other Results Laboratory Tests Test 09/25/17 02:02 09/25/17 02:05 09/26/17 05:36 09/26/17 12:50 White Blood Count 8.1 TH/MM3 6.1 TH/MM3 Red Blood Count 4.29 MIL/MM3 4.75 MIL/MM3 Hemoglobin 13.3 GM/DL 14.7 GM/DL Hematocrit 39.1 % 43.7 % Mean Corpuscular Volume 91.2 FL 92.0 FL Mean Corpuscular Hemoglobin 30.9 PG 31.0 PG Mean Corpuscular Hemoglobin Concent 33.9 % 33.7 % Red Cell Distribution Width 14.1 % 13.4 % Platelet Count 248 TH/MM3 257 TH/MM3 Mean Platelet Volume 8.6 FL 9.0 FL Neutrophils (%) (Auto) 53.9 % 63.0 % Lymphocytes (%) (Auto) 23.8 % 21.6 % Monocytes (%) (Auto) 12.1 % 8.5 % Eosinophils (%) (Auto) 9.5 % 6.2 % Basophils (%) (Auto) 0.7 % 0.7 % Neutrophils # (Auto) 4.4 TH/MM3 3.8 TH/MM3 Lymphocytes # (Auto) 1.9 TH/MM3 1.3 TH/MM3 Monocytes # (Auto) 1.0 TH/MM3 0.5 TH/MM3 Eosinophils # (Auto) 0.8 TH/MM3 0.4 TH/MM3 Basophils # (Auto) 0.1 TH/MM3 0.0 TH/MM3 CBC Comment DIFF FINAL DIFF FINAL Differential Comment Prothrombin Time 10.7 SEC Prothromb Time International Ratio 1.1 RATIO Activated Partial Thromboplast Time 29.5 SEC Blood Urea Nitrogen 15 MG/DL 8 MG/DL Creatinine 1.09 MG/DL 0.96 MG/DL Random Glucose 115 MG/DL 79 MG/DL Total Protein 7.9 GM/DL Albumin 3.3 GM/DL Calcium Level 9.0 MG/DL 8.9 MG/DL Alkaline Phosphatase 67 U/L Aspartate Amino Transf (AST/SGOT) 79 U/L Alanine Aminotransferase (ALT/SGPT) 140 U/L Total Bilirubin 0.4 MG/DL Sodium Level 140 MEQ/L 140 MEQ/L Potassium Level 3.7 MEQ/L 4.0 MEQ/L Chloride Level 103 MEQ/L 106 MEQ/L Carbon Dioxide Level 29.9 MEQ/L 27.5 MEQ/L Anion Gap 7 MEQ/L 7 MEQ/L Estimat Glomerular Filtration Rate 78 ML/MIN 91 ML/MIN Lactic Acid Level 1.2 mmol/L Vancomycin Level Trough 3.0 MCG/ML Test 09/27/17 00:15 Stool C. difficile Toxin (PCR) NEGATIVE Stl C. difficile Toxin Epiderm 027 PRESUMPTIVE NEGATIVE Objective Remarks GENERAL: This is a well-nourished, well-developed patient, in no apparent distress. CARDIOVASCULAR: Regular rate and rhythm RESPIRATORY: Clear to auscultation. Breath sounds equal bilaterally. GASTROINTESTINAL: Abdomen soft, non-tender, nondistended. Normal active bowel sounds MUSCULOSKELETAL: Extremities without clubbing, cyanosis, or edema. left forearm indurated NEURO: Alert & Oriented. Moves all ext x4 A/P Assessment and Plan 32yo male with PMHX of IVDU, previous staph infection, Hep C and bipolar disorder who presented to [facility] ED with complaints of left arm swelling , redness and pain x 4 days. Left forearm cellulitis with retained foreign object in the superficial soft tissues of left elbow -xray left elbow shows needle in the superficial soft tissues of the medial volar left elbow -CT UE 09/24 revealed a foreign object in the superficial subcutaneous tissues of the medial volar elbow region at about the level of the distal aspect of the medial upper condyle. There is prominent cellulitic change in the soft tissues in this region and extending down into the forearm. No evidence of abscess. Foreign body and cellulitis -Continue IV Zosyn and Vancomycin in the ED, continue. Monitor kidney function. -Consult hand surgery, appreciate recommendations -hand surgeon recommended at this time no indication for surgical intervention. Continue with antibiotic treatments. May consider general surgery or orthopedic consult. -Patient continues to have pain, induration, mild erythema call placed to general surgery - awaiting return call -Pain management with bowel regimen Hep C Transaminitis -Standard precautions -Monitor LFTs -Avoid hepatotoxic agents Bipolar disorder -Patient not on any bipolar medications at this time DVT prophylaxis -Avoid chemoprophylaxis secondary to possible upcoming surgical procedure -bilateral SCD/EDE hose Case discussed with Dr. Schultz, charge nurse and floor nurse Melissa Grande Sep 27, 2017 10:33
[2017-09-27 12:00] VITALS: BP 122/58; PULSE 54; RESP 16; TEMP 97.9; O2SAT 98
[2017-09-27] MEDS: DOCUSATE SODIUM 50 MG/SENNA 8.6 MG TAB PO SCH ×2 (13:24→21:08)
[2017-09-27] MEDS: SODIUM CHLORIDE 0.9% FLUSH 10 ML FLUSH IV FLUSH SCH ×2 (13:25→21:08)
[2017-09-27 16:00] VITALS: BP 141/79; PULSE 60; RESP 16; TEMP 97.5; O2SAT 100
[2017-09-27 20:49] VITALS: BP 141/78; PULSE 64; RESP 18; TEMP 97.7; O2SAT 97
[2017-09-28] MEDS: PIPERACIL-TAZO 3.375 GM PREMIX 50 ML IV SCH ×2 (00:43→06:23)
[2017-09-28 00:45] VITALS: BP 136/64; PULSE 63; RESP 18; TEMP 98.2; O2SAT 97
[2017-09-28] MEDS ORDERED: PHARMACY ORDERED LAB ONE ×2 (00:45→12:45)
[2017-09-28] MEDS: VANCOMYCIN INJ 1,250 MG in SODIUM CHLOR 0.9% 250 ML INJ 250 ML IV SCH (01:21)
[2017-09-28 03:31] VITALS: BP 146/78; PULSE 69; RESP 18; TEMP 98.2; O2SAT 99
[2017-09-28 05:28] LABS: CREATININE 0.97 MG/DL (0.60-1.30)
[2017-09-28 05:37] LABS: AUTOMATED NEUTROPHIL # 6.1 TH/MM3 (1.8-7.7); BASOPHIL % 0.5 % (0.0-2.0); EOSINOPHIL # 0.3 TH/MM3 (0-0.4); EOSINOPHIL % 3.6 % (0.0-4.0); HEMATOCRIT 42.3 % (39.0-51.0); HEMOGLOBIN 14.2 GM/DL (13.0-17.0); LYMPH % 20.8 % (9.0-44.0); LYMPHOCYTE # 1.8 TH/MM3 (1.0-4.8); MEAN CELL VOLUME 91.1 FL (80.0-100.0); MEAN CORPUSCULAR HEMOGLOBIN 30.7 PG (27.0-34.0); MEAN CORPUSCULAR HGB CONC 33.7 % (32.0-36.0); MEAN PLATELET VOLUME 8.6 FL (7.0-11.0); MONO % 6.3 % (0.0-8.0); MONOCYTE # 0.6 TH/MM3 (0-0.9); NEUT % 68.8 % (16.0-70.0); PLATELET COUNT 292 TH/MM3 (150-450); RED BLOOD COUNT 4.64 MIL/MM3 (4.50-5.90); RED CELL DISTRIBUTION WIDTH 13.3 % (11.6-17.2); WHITE BLOOD COUNT 8.8 TH/MM3 (4.0-11.0)
[2017-09-28 08:04] VITALS: BP 144/80; PULSE 68; RESP 19; TEMP 98.2; O2SAT 100
[2017-09-28] MEDS: SODIUM CHLORIDE 0.9% FLUSH 10 ML FLUSH IV FLUSH SCH (08:43)
[2017-09-28] MEDS: DOCUSATE SODIUM 50 MG/SENNA 8.6 MG TAB PO SCH (08:44)
--- NOTE | 2017-09-28 10:28 | PD.AMA ---
Against Medical Advice Note Discharge Disposition: Against Medical Advice Pt Condition on Discharge: Stable AMA Statement Patient Popeye Kurtz has decided to leave the hospital against medical advice. This patient has the capacity to refuse care and understands the risks of leaving, including permanent disability and/or , and has had an opportunity to ask questions about his condition. The patient has been informed that he may return for care at any time, and follow up has been arranged/ advised. 1020hrs: Attempted to see patient in the room however the room is empty and RN informs me the patient already left AMA. Per the RN, the patient was seen by both hand surgery and general surgery who did not recommend surgical intervention at this time. The patient did not want to wait in the hospital therefore left AGAINST MEDICAL ADVICE. Mary Kessler PA-C Sep 28, 2017 10:28 am
--- NOTE | 2017-09-28 10:51 | PD.CONS ---
HPI Service General Surgery Consult Requested By Lisa Grande Reason for Consult foreign body left arm Primary Care Physician No Primary Care Physician History of Present Illness Patient seen at 830 am: 32 yo M with h/o of IVDA with infection of left forearm treated by IV antibiotics. He originally noted pain and swelling immediately after injection. On CT evaluation he was found to have small foreign body felt to be a piece of a hypodermic needle. He states that the swelling is significantly improved now. He still has some pain in the area and tightness with extension of fingers and wrist. WBC has been normal. Review of Systems Constitutional: DENIES: Fever, Chills Eyes: DENIES: Eye inflammation, Eye pain Respiratory: DENIES: Cough, Shortness of breath Cardiovascular: DENIES: Chest pain, Palpitations Gastrointestinal: DENIES: Abdominal pain, Nausea Musculoskeletal: DENIES: Neck pain Neurologic: DENIES: Seizures Past Family Social History Past Medical History IVDA Hepatitis C Past Surgical History Debridement facial wound Reported Medications Reported Meds & Active Scripts Active No Active Prescriptions or Reported Medications Allergies: Coded Allergies: No Known Allergies (Unverified , 09/25/17) Active Ordered Medications Current Medications Medications (Trade) Dose Ordered Sig/Domo Route Start Time Stop Time Status Last Admin Piperacillin Sod/ Tazobactam Sod 50 ml @ 100 mls/hr Q6H IV 09/25/17 07:00 09/28/17 06:23 Pharmacy Profile Note 0 ml @ 0 mls/hr UNSCH OTHER 09/25/17 03:30 (NS Flush) 2 ml UNSCH PRN IV FLUSH 09/25/17 03:30 (NS Flush) 2 ml BID IV FLUSH 09/25/17 09:00 09/28/17 08:43 (Tylenol) 650 mg Q4H PRN PO 09/25/17 03:30 (Zofran Inj) 4 mg Q6H PRN IVP 09/25/17 03:30 (Narcan Inj) 0.4 mg UNSCH PRN IV PUSH 09/25/17 03:30 (Darcie-Colace) 1 tab BID PO 09/25/17 09:00 09/27/17 13:24 (Milk Of Magnesia Liq) 30 ml Q12H PRN PO 09/25/17 03:30 (Senokot) 17.2 mg Q12H PRN PO 09/25/17 03:30 (Dulcolax Supp) 10 mg DAILY PRN RECTAL 09/25/17 03:30 (Lactulose Liq) 30 ml DAILY PRN PO 09/25/17 03:30 Vancomycin HCl 1250 mg/Sodium Chloride 262.5 ml @ 250 mls/hr Q12H IV 09/27/17 01:00 09/28/17 01:21 (Imodium) 2 mg UNSCH PRN PO 09/27/17 02:45 Miscellaneous Information SPECIFIC LAB TO BE [facility]... ONCE ONCE .XX 09/28/17 12:45 09/28/17 12:46 Family History Noncontributory Social History Active IVDA. Physical Exam Vital Signs Vital Signs Date Time Temp Pulse Resp B/P (MAP) Pulse Ox O2 Delivery O2 Flow Rate FiO2 09/28/17 08:04 98.2 68 19 144/80 (101) 100 09/28/17 03:31 98.2 69 18 146/78 (100) 99 09/28/17 00:45 98.2 63 18 136/64 (88) 97 09/27/17 20:49 97.7 64 18 141/78 (99) 97 09/27/17 16:00 97.5 60 16 141/79 (99) 100 09/27/17 12:00 97.9 54 16 122/58 (79) 98 Physical Exam No distress, comfortable in bed. AAO. Nonlabored breathing Left upper extremity: Forearm with no erythema. 3cm area of induration medially about 5 cm distal to AC fossa. Otherwise soft, nontender. Laboratory Laboratory Tests Test 09/28/17 00:45 09/28/17 03:52 Vancomycin Level Trough 1.5 White Blood Count 8.8 Red Blood Count 4.64 Hemoglobin 14.2 Hematocrit 42.3 Mean Corpuscular Volume 91.1 Mean Corpuscular Hemoglobin 30.7 Mean Corpuscular Hemoglobin Concent 33.7 Red Cell Distribution Width 13.3 Platelet Count 292 Mean Platelet Volume 8.6 Neutrophils (%) (Auto) 68.8 Lymphocytes (%) (Auto) 20.8 Monocytes (%) (Auto) 6.3 Eosinophils (%) (Auto) 3.6 Basophils (%) (Auto) 0.5 Neutrophils # (Auto) 6.1 Lymphocytes # (Auto) 1.8 Monocytes # (Auto) 0.6 Eosinophils # (Auto) 0.3 Basophils # (Auto) 0.0 CBC Comment DIFF FINAL Differential Comment Creatinine 0.97 Estimat Glomerular Filtration Rate 90 Date/Time Source Procedure Growth Status 09/25/17 02:10 Blood Peripheral Aerobic Blood Culture - Preliminary NO GROWTH IN 2 DAYS Resulted 09/25/17 02:10 Blood Peripheral Anaerobic Blood Culture - Preliminary NO GROWTH IN 2 DAYS Resulted Result Diagram: 09/28/17 0352 09/28/17 0352 Assessment and Plan Assessment and Plan 32 yo M h/o IVDA with left arm infection associated with retained foreign body likely small (approx 1cm) piece of hypodermic needle. Currently has no cellulitis or evidence of deep space infection. I would defer to hand surgery evaluation in this case as the foreign body is embedded in the forearm. It does appear he is improving on antibiotics alone and may not require removal. D/w Dr. Vera and Lisa LEBRON. Need to be sure is up to date on tetanus. Jayson Reyes MD Sep 28, 2017 10:51
== END 2017-09-28 11:13 | disposition left against medical advice (07) | DRG 603 ==
LOC: NEPC 22:29 → NEDA 09-25 03:31 → UNDOADMIN 09-25 03:31 → INTOOBSV 09-25 03:34 → NEDA 09-25 03:34 → NEDH 09-25 09:13 → NEPFCDU 09-25 13:07 → OBSVTOIN 09-26 18:12
PROVIDERS: ADMIT Hospitalist; ATTEND Hospitalist
DX: L03.114 Cellulitis of left upper limb (principal); F11.10 Opioid abuse, uncomplicated; S50.852A Superficial foreign body of left forearm, initial encounter; B19.20 Unspecified viral hepatitis C without hepatic coma; F31.9 Bipolar disorder, unspecified; F41.9 Anxiety disorder, unspecified; F17.210 Nicotine dependence, cigarettes, uncomplicated; F14.10 Cocaine abuse, uncomplicated
CPT/HCPCS: 80048; 80053; 80202; 82565; 83605; 85025; 85610; 85730; 87040; 87493; 96365; 96368; J2543; J3370; J7030; J7050

== ENCOUNTER 2018-03-01 23:16 | Observation (INO) ==
[2018-03-02] MEDS ORDERED: Piperacil/Tazo 3.375 GM Premix 50 ML IV.SIG ONE (02:20)
[2018-03-02] MEDS ORDERED: Sod Chloride 0.9% Inj 1,000 ML IV.SIG ONE (02:20)
[2018-03-02] MEDS ORDERED: Vancomycin Inj 1 GM/200 ML PIGGYBACK IV.SIG ONE (02:20)
[2018-03-02 03:12] LABS: Baso % (Auto) 0.3 % (0.0-2.0); Eos # (Auto) 0.3 th/mm3 (0.0-0.4); Eos % (Auto) 3.1 % (0.0-4.0); Hematocrit 41.3 % (39.0-51.0); Hemoglobin 14.4 gm/dL (13.0-17.0); Lymph # (Auto) 2.3 th/mm3 (1.0-4.8); Mean Corpuscular HGB Conc 34.8 % (32.0-36.0); Mean Corpuscular Hemoglobin 31.4 pg (27.0-34.0); Mean Corpuscular Volume 90.2 fL (80.0-100.0); Mean Platelet Volume 8.1 fL (7.0-11.0); Mono # (Auto) 0.9 th/mm3 (0.0-0.9); Mono % (Auto) 9.1 % (0.0-8.0); Neut # (Auto) 6.1 th/mm3 (1.8-7.7); Neut % (Auto) 63.5 % (16.0-70.0); Platelet Count 285 th/mm3 (150-450); Red Blood Count 4.58 mil/mm3 (4.50-5.90); Red Cell Distribution Width 13.5 % (11.6-17.2); White Blood Count 9.6 th/mm3 (4.0-11.0)
--- NOTE | 2018-03-02 03:19 | ED ---
HPI General Chief complaint: Respiratory Symptoms Stated complaint: Skin/SOB Time Seen by Provider: 03/02/18 02:07 Source: patient Limitations: no limitations History of Present Illness HPI narrative: The patient is a 32 year old male who presents to the [facility] emergency department with a history of relapsing with using IV drugs 2 weeks ago. He reports that since then he has had new skin wounds noted. The patient reports that he has a history of recurrent skin infections and abscesses , however he does not recall ever being diagnosed with MRSA. The patient denies ever being diagnosed with endocarditis, however he does have a history of being positive for hepatitis B and C. The patient reports that yesterday he did have some chest pain and shortness of breath. He denies having any known fevers. He reports that since yesterday he has had diarrhea on one occasion. He denies having any nausea or vomiting. He denies having any new neck or back pain. On review of systems otherwise, he denies having any cough, congestion, neck pain, abdominal pain, urinary symptoms, or neurologic symptoms. Related Data Home Medications Medication Instructions Recorded Confirmed No Known Home Medications 03/02/18 03/02/18 Allergies Allergy/AdvReac Type Severity Reaction Status Date / Time No Known Allergies Allergy Verified 03/01/18 23:43 Review of Systems ROS: all other systems reviewed are negative PMFSH Medical History Medical History Hepatitis B (Acute) Hepatitis C (Acute) IVDU (intravenous drug user) (Acute) Patient denies medical problems (Acute) Surgical History Surgical History H/O hand surgery (Acute) No history of previous surgery (Acute) Social History Social History Substance History: Active Abuse Second Hand Smoke Exposure: Yes Smoking Status: Current every day smoker Tobacco Type: Cigarettes Packs Per Day: 0.5 Cigarettes Per Day: 10.0 How Often Do You Have a Drink Containing Alcohol: 2 to 4 times a month Recent Travel in [facility] within the Last 8 Weeks: No Recent Out of Country Travel within the Last 8 Weeks: No Substance Abuse Detail Heroin: Substance Use Status: Active Immunization History Tetanus Immunization: Unsure Hx Influenza Vaccine This Season: No Exam Const General: cooperative and well developed Nutritional Appearance: well nourished Orientation: alert, awake and oriented x3 HENMT Head: normocephalic and atraumatic Nose: no nasal discharge and no epistaxis Mouth: moist mucous membranes Throat: posterior oropharynx normal and uvula midline Eyes Sclera: normal sclerae Pupils: PERRL Neck Neck: no meningeal signs, trachea midline and no JVD Resp Effort & Inspection: no use of accessory muscles Auscultation: clear to auscultation bilaterally Cardio Rate: tachycardic (Sinus tachycardia in the low 100s, no pulse deficits to the extremities on simultaneous auscultation and palpation of his radial artery) Rhythm: regular rhythm Heart Sounds: no gallops, no murmurs and no rubs GI Inspection: non-distended Palpation: soft, no hepatosplenomegaly and nontender Auscultation: normal bowel sounds Back/Spine/Pelvis Back: no CVA tenderness Cervical Spine: No cervical spinal tenderness Thoracic/Lumbar Spine: No thoracic spinal tenderness and No lumbar spinal tenderness Skin General: dry skin (warm) Neuro General: alert, awake and oriented x3 Cranial Nerves: CN's II-XI intact bilaterally Speech: speech normal Motor: strength 5/5 throughout and no movement abnormalities noted Extrem General: abnormal to inspection, no clubbing, no cyanosis, no edema and other ( Patient has scattered areas of erythema on the upper extremities with track peraza noted. The patient has areas of excoriation. The patient has nodules noted underneath the skin. There is no palpable fluctuance. No pointing. No crepitus.) Psych Judgment: limited Course Consultations Consultation #1: The patient's case including history, pertinent physical examination findings, and laboratory studies were discussed with Dr. Adair. It was agreed that the patient would be admitted to the hospitalist service. Initial Documented Vital Signs Temperature 97.6 F 03/01/18 23:46 Pulse Rate 100 H 03/01/18 23:46 Respiratory Rate 15 03/01/18 23:46 Blood Pressure 167/80 H 03/01/18 23:46 Pulse Oximetry 100 03/01/18 23:46 Last Documented Vital Signs Temperature 97.6 F 03/01/18 23:46 Pulse Rate 65 03/02/18 04:55 Respiratory Rate 16 03/02/18 04:55 Blood Pressure 126/68 03/02/18 04:55 Pulse Oximetry 98 03/02/18 04:55 Medical Decision Making MDM Narrative Medical decision making narrative: During the course of the patient's emergency department visit, the patient's history, examination, and differential diagnosis were reviewed with the patient. The patient was placed on a vehicle monitor technician with oximetry and frequent blood pressure monitoring. The patient had IV access obtained and blood work sent for analysis. A diagnostic evaluation was started regarding the patient's reported chest pain, shortness of breath, associated with history of IV drug use. The patient was initially provided normal saline 1 L IV fluid bolus, Zosyn and vancomycin for broad-spectrum antibiotic coverage. The patient sedimentation rate and CRP are elevated. Blood cultures x2 were sent for analysis, lactic acid was within normal limits. The patient will be admitted to the hospital for evaluation for possible endocarditis. The patient's results were discussed with the patient, including the plan of care. I explained that further testing and/ or monitoring is indicated based on the patient's history, examination, and/ or laboratory findings. Therefore, I recommended admission for additional evaluation. The patient expressed understanding and was agreeable with this plan. The patient was admitted to the hospital in guarded condition and sent to a bed under the care of the [facility] service. Medical Screen Exam Complete: Yes Emergency Medical Condition: Yes Differential Diagnosis Differential Diagnosis: Cellulitis, versus abscess, versus endocarditis, versus pneumonia, versus urinary tract infection Medical Records Medical records reviewed: Yes I reviewed the patient's medical records. Lab Data Lab results reviewed: Yes I reviewed the patient's lab results. Result diagrams: 03/02/18 03:00 03/02/18 03:00 Lab Results 03/02/18 03/02/18 03/02/18 Range/Units 03:00 03:00 03:00 WBC 9.6 (4.0-11.0) th/mm3 RBC 4.58 (4.50-5.90) mil/mm3 Hgb 14.4 (13.0-17.0) gm/dL Hct 41.3 (39.0-51.0) % MCV 90.2 (80.0-100.0) fL MCH 31.4 (27.0-34.0) pg MCHC 34.8 (32.0-36.0) % RDW 13.5 (11.6-17.2) % Plt Count 285 (150-450) th/mm3 MPV 8.1 (7.0-11.0) fL Neut % (Auto) 63.5 (16.0-70.0) % Lymph % (Auto) 24.0 (9.0-44.0) % Gage % (Auto) 9.1 H (0.0-8.0) % Eos % (Auto) 3.1 (0.0-4.0) % Baso % (Auto) 0.3 (0.0-2.0) % Neut # (Auto) 6.1 (1.8-7.7) th/mm3 Lymph # (Auto) 2.3 (1.0-4.8) th/mm3 Gage # (Auto) 0.9 (0.0-0.9) th/mm3 Eos # (Auto) 0.3 (0.0-0.4) th/mm3 Baso # (Auto) 0.0 (0.0-0.2) th/mm3 WBC Differential . Differential Comment Auto diff final ESR (0-15) mm/hr PT 11.0 (9.8-11.6) sec INR 1.1 Ratio APTT 30.7 H (24.3-30.1) sec Sodium 140 (136-145) meq/L Potassium 3.7 (3.5-5.1) meq/L Chloride 102 (98-107) meq/L Carbon Dioxide 31.0 (21.0-32.0) meq/L Anion Gap 7 (5-15) meq/L BUN 9 (7-18) mg/dL Creatinine 0.88 (0.60-1.30) mg/dL Estimated GFR Greater than 89 (>89) mL/min Random Glucose 75 (74-106) mg/dL Lactic Acid (0.4-2.0) mmol/L Calcium 9.0 (8.5-10.1) mg/dL Magnesium 2.2 (1.5-2.5) mg/dL Total Bilirubin 0.3 (0.2-1.0) mg/dL AST 43 H (15-37) U/L ALT 77 (12-78) U/L Alkaline Phosphatase 69 (45-117) U/L Total Creatine Kinase 78 (39-308) U/L Troponin I Less than 0.02 L (0.02-0.05) ng/mL C-Reactive Protein 3.89 H (0.00-0.30) mg/dL Total Protein 8.8 H (6.4-8.2) g/dL Albumin 3.4 (3.4-5.0) g/dL Lipase 74 (73-393) U/L Serum Alcohol Less than 3 (0-5) mg/dL 03/02/18 03/02/18 Range/Units 03:00 03:00 WBC (4.0-11.0) th/mm3 RBC (4.50-5.90) mil/mm3 Hgb (13.0-17.0) gm/dL Hct (39.0-51.0) % MCV (80.0-100.0) fL MCH (27.0-34.0) pg MCHC (32.0-36.0) % RDW (11.6-17.2) % Plt Count (150-450) th/mm3 MPV (7.0-11.0) fL Neut % (Auto) (16.0-70.0) % Lymph % (Auto) (9.0-44.0) % Gage % (Auto) (0.0-8.0) % Eos % (Auto) (0.0-4.0) % Baso % (Auto) (0.0-2.0) % Neut # (Auto) (1.8-7.7) th/mm3 Lymph # (Auto) (1.0-4.8) th/mm3 Gage # (Auto) (0.0-0.9) th/mm3 Eos # (Auto) (0.0-0.4) th/mm3 Baso # (Auto) (0.0-0.2) th/mm3 WBC Differential Differential Comment ESR 42 H (0-15) mm/hr PT (9.8-11.6) sec INR Ratio APTT (24.3-30.1) sec Sodium (136-145) meq/L Potassium (3.5-5.1) meq/L Chloride (98-107) meq/L Carbon Dioxide (21.0-32.0) meq/L Anion Gap (5-15) meq/L BUN (7-18) mg/dL Creatinine (0.60-1.30) mg/dL Estimated GFR (>89) mL/min Random Glucose (74-106) mg/dL Lactic Acid 1.0 (0.4-2.0) mmol/L Calcium (8.5-10.1) mg/dL Magnesium (1.5-2.5) mg/dL Total Bilirubin (0.2-1.0) mg/dL AST (15-37) U/L ALT (12-78) U/L Alkaline Phosphatase (45-117) U/L Total Creatine Kinase (39-308) U/L Troponin I (0.02-0.05) ng/mL C-Reactive Protein (0.00-0.30) mg/dL Total Protein (6.4-8.2) g/dL Albumin (3.4-5.0) g/dL Lipase (73-393) U/L Serum Alcohol (0-5) mg/dL Imaging Data Radiologist's impression: Chest X-Ray 03/02/18 02:20 CONCLUSION: No active disease. ECG Data Attestation: I personally reviewed and interpreted this ECG as follows: Interpretation: The patient had an EKG done on arrival that shows a sinus bradycardia rate of 59, QRS duration is 125 ms with an intraventricular conduction delay, QTC [address] segment elevation is noted. T waves are inverted in V1. Discharge Plan Discharge Disposition Patient Disposition: 30 Still Patient Discharge Details Diagnosis: Chest pain, IVDU (intravenous drug user), Bacterial skin infection Physicians Team ED Provider: Florina Rodriguez Primary Care Provider: Primary Care Lisha Arreola Rxs /Orders / Referrals /Forms Prescriptions: No Action No Known Home Medications RF: 0 Status ED Status: Admitted Patient
[2018-03-02 03:24] LABS: Alanine Aminotransferase 77 U/L (12-78); Albumin 3.4 g/dL (3.4-5.0); Anion Gap 7 meq/L (5-15); Aspartate Aminotransferase 43 U/L (15-37); Blood Urea Nitrogen 9 mg/dL (7-18); Chloride 102 meq/L (98-107); Glomerular Filtration Rate Greater Than 89 mL/min (>89); Glucose,Random 75 mg/dL (74-106); Lipase 74 U/L (73-393); Magnesium 2.2 mg/dL (1.5-2.5); Potassium 3.7 meq/L (3.5-5.1); Sodium 140 meq/L (136-145)
[2018-03-02 03:27] LABS: Activated Partial Thrombo Time 30.7 sec (24.3-30.1); INR 1.1 Ratio
--- NOTE | 2018-03-02 03:28 | XR ---
EXAM DATE: 03/02/2018 3:12 AM EDT AGE/SEX: 32 years / Male INDICATIONS: Shortness of breath off and on for a few days worse today. CLINICAL DATA: This is the patient's initial encounter. Patient reports that signs and symptoms have been present for 3 days and indicates a pain score of 0/10. MEDICAL/SURGICAL HISTORY: . Hepatitis C. IV drug abuse. None. COMPARISON: [facility] [place]ST SINGLE AP, 01/30/2017. . FINDINGS: A single AP view of the chest demonstrates the lungs to be symmetrically aerated without evidence of mass, infiltrate or effusion. The cardiomediastinal contours are unremarkable. Osseous structures a re intact. CONCLUSION: No active disease. Electronically signed by: Tae Borja MD 03/02/2018 3:27 AM EDT
[2018-03-02 03:29] LABS: Alkaline Phosphatase 69 U/L (45-117); C-Reactive Protein 3.89 mg/dL (0.00-0.30); Total Protein 8.8 g/dL (6.4-8.2)
[2018-03-02 03:31] LABS: Creatine Kinase 78 U/L (39-308)
[2018-03-02] MEDS ORDERED: Vancomycin Inj 1,000 MG in Sodium Chlor 0.9% Inj 250 ML IV.SIG ONE (04:00)
[2018-03-02] MEDS ORDERED: Vancomycin Consult Pharmacy OTHER PRN (04:37)
[2018-03-02] MEDS ORDERED: Acetaminophen 325 MG Tablet PO PRN (04:38)
[2018-03-02] MEDS ORDERED: Bisacodyl 10 MG Supp RECTAL PRN (04:38)
[2018-03-02] MEDS: Sod Chloride 0.9% Inj 1,000 ML IV.CONT SCH ×2 (05:48→18:23)
--- NOTE | 2018-03-02 09:54 | P.HP ---
History of Present Illness Primary Care Physician: No Primary Care Physician History of Present Illness: 32 year old male who presents to the [facility] emergency department with a history of relapsing with using IV drugs 2 weeks ago. He reports that since then he has had new skin wounds noted. The patient reports that he has a history of recurrent skin infections and abscesses, however he does not recall ever being diagnosed with MRSA. The patient denies ever being diagnosed with endocarditis, however he does have a history of being positive for hepatitis B and C. The patient reports that yesterday he did have some chest pain and shortness of breath. He denies having any known fevers. He reports that since yesterday he has had diarrhea on one occasion. He denies having any nausea or vomiting. He denies having any new neck or back pain. On review of systems otherwise, he denies having any cough, congestion, neck pain, abdominal pain, urinary symptoms, or neurologic symptoms. Review of Systems All other systems reviewed negative except as stated in HPI PMFSH - History History Provided By: Patient - Medical History Medical History: Medical History (Last Reviewed 03/02/18 @ 09:50 by Jenelle Avendano MD) Patient denies medical problems Hepatitis B Hepatitis C IVDU (intravenous drug user) - Surgical History Surgical History: Surgical History (Last Reviewed 03/02/18 @ 09:50 by Jenelle Avendano MD) No history of previous surgery H/O hand surgery - Family History Family History: Family History (Last Updated 03/02/18 @ 15:34 by Jenelle Avendano MD) Father HTN (hypertension) Mother HTN (hypertension) Father Diabetes Mother Diabetes - Tobacco History Second Hand Smoke Exposure: Yes Tobacco Use In Past 30 Days: Yes Smoking Status: Current every day smoker Tobacco Type: Cigarettes Packs Per Day: 0.5 Cigarettes Per Day: 10.0 - Alcohol History How Often Do You Have a Drink Containing Alcohol: 2 to 4 times a month - Substance Use History Substance History: Active Abuse - Substance Use Type Heroin Status: Active - Travel History Recent Travel in the [place] Within the Last 8 Weeks: No Recent Travel Out of the Country Within the Last 8 Weeks: No - Immunization History Tetanus Immunization: Unsure Hx Influenza Vaccine This Season: No Medications and Allergies Active Medications: Active Medications Acetaminophen (Tylenol) 650 mg PO Q4H PRN PRN Reason: Temp > 100.4 Al Hydroxide/Mg Hydroxide (Milk Of Magnesia Liq) 30 ml PO Q12H PRN PRN Reason: Mild Constipation Bisacodyl (Dulcolax Supp) 10 mg RECTAL DAILY PRN PRN Reason: SEVERE CONSITIPATION Piperacillin/Tazobactam/Dextrose (Zosyn 3.375 Gm Premix) 50 mls @ 100 mls/hr IV.SIG Q6H VASQUEZ Sodium Chloride (Ns Inj) 1,000 mls @ 100 mls/hr IV.CONT .Q10H VASQUEZ Last Admin: 03/02/18 05:48 Dose: 100 mls/hr Lactulose (Lactulose Liq) 30 ml PO DAILY PRN PRN Reason: SEVERE CONSITIPATION Ondansetron HCl (Zofran Inj) 4 mg IV.PUSH Q6H PRN PRN Reason: NAUSEA OR VOMITING Pharmacy Profile Note (Vancomycin Consult Pharmacy) 1 each OTHER UNSCH PRN PRN Reason: Pharmacy to dose Senna/Docusate Sodium (Darcie-Colace) 1 tab PO BID [facility] Sennosides (Senokot) 17.2 mg PO Q12H PRN PRN Reason: Moderate Constipation Sodium Chloride (Ns Flush) 2 ml IV.FLUSH UNSCH PRN PRN Reason: FLUSH AFTER USING IV ACCESS Allergies Allergy/AdvReac Type Severity Reaction Status Date / Time No Known Allergies Allergy Verified 03/01/18 23:43 Home Medications Medication Instructions Recorded Confirmed Type No Known Home Medications 03/02/18 03/02/18 History Exam Vital signs: Vital Signs 03/01/18 23:46 03/02/18 02:53 03/02/18 03:15 Temperature 97.6 F Pulse Rate 100 H 67 Respiratory Rate 15 16 Blood Pressure 167/80 H 124/75 Pulse Oximetry 100 98 97 03/02/18 04:55 Temperature Pulse Rate 65 Respiratory Rate 16 Blood Pressure 126/68 Pulse Oximetry 98 Intake & Output 03/01/18 03/02/18 03/02/18 18:59 06:59 18:59 Intake Total 1300 / 1300 Balance 1300 / 1300 Weight 77.111 kg Intake: IV 1300 / 1300 Zosyn 3.375 GM Premix 50 ML @ 50 / 50 100 mls/hr IV.SIG ONCE ONE Rx#: [id number] NS Inj 1,000 ML @ Wide Open IV. 1000 / 1000 SIG BOLUS ONE Rx#:[id number] Vancomycin Inj 1,000 MG In NS 250 / 250 Inj 250 ML @ 250 mls/hr IV.SIG ONCE ONE Rx#:[id number] Narrative: GENERAL: 32 yo M in nad , doesn't appear toxic. SKIN: Warm and dry. Scattered areas of erythema on the upper extremities with track peraza noted. HEAD: Atraumatic. Normocephalic. EYES: Pupils equal and round. No scleral icterus. No injection or drainage. ENT: No nasal bleeding or discharge. Mucous membranes pink and moist. NECK: Trachea midline. No JVD. CARDIOVASCULAR: Regular rate and rhythm. RESPIRATORY: No accessory muscle use. Clear to auscultation. Breath sounds equal bilaterally. GASTROINTESTINAL: Abdomen soft, non-tender, nondistended. Hepatic and splenic margins not palpable. MUSCULOSKELETAL: Extremities without clubbing, cyanosis, or edema. Scattered areas of erythema on the upper extremities with track peraza noted. The patient has areas of excoriation. The patient has nodules noted underneath the skin. There is no palpable fluctuance. No pointing. No crepitus. NEUROLOGICAL: Awake and alert. No obvious cranial nerve deficits. Motor grossly within normal limits. Five out of 5 muscle strength in the arms and legs. Normal speech. PSYCHIATRIC: Appropriate mood and affect; insight and judgment normal. Results - Labs CBC & Chem 7: 03/02/18 03:00 03/02/18 03:00 Labs: Laboratory Results - last 24 hr 03/02/18 03/02/18 03/02/18 03:00 03:00 03:00 WBC 9.6 RBC 4.58 Hgb 14.4 Hct 41.3 MCV 90.2 MCH 31.4 MCHC 34.8 RDW 13.5 Plt Count 285 MPV 8.1 Neut % (Auto) 63.5 Lymph % (Auto) 24.0 [place] % (Auto) 9.1 H Eos % (Auto) 3.1 Baso % (Auto) 0.3 Neut # (Auto) 6.1 Lymph # (Auto) 2.3 [place] # (Auto) 0.9 Eos # (Auto) 0.3 Baso # (Auto) 0.0 WBC Differential . Differential Comment Auto diff final ESR PT 11.0 INR 1.1 APTT 30.7 H Sodium 140 Potassium 3.7 Chloride 102 Carbon Dioxide 31.0 Anion Gap 7 BUN 9 Creatinine 0.88 Estimated GFR Greater than 89 Random Glucose 75 Lactic Acid Calcium 9.0 Magnesium 2.2 Total Bilirubin 0.3 AST 43 H ALT 77 Alkaline Phosphatase 69 Total Creatine Kinase 78 Troponin I Less than 0.02 L C-Reactive Protein 3.89 H Total Protein 8.8 H Albumin 3.4 Lipase 74 Serum Alcohol Less than 3 03/02/18 03/02/18 03:00 03:00 WBC RBC Hgb Hct MCV MCH MCHC RDW Plt Count MPV Neut % (Auto) Lymph % (Auto) [place] % (Auto) Eos % (Auto) Baso % (Auto) Neut # (Auto) Lymph # (Auto) [place] # (Auto) Eos # (Auto) Baso # (Auto) WBC Differential Differential Comment ESR 42 H PT INR APTT Sodium Potassium Chloride Carbon Dioxide Anion Gap BUN Creatinine Estimated GFR Random Glucose Lactic Acid 1.0 Calcium Magnesium Total Bilirubin AST ALT Alkaline Phosphatase Total Creatine Kinase Troponin I C-Reactive Protein Total Protein Albumin Lipase Serum Alcohol - Imaging Impressions Chest X-Ray 03/02/18 02:20 CONCLUSION: No active disease. Caprini VTE Risk Assessment Caprini VTE Risk Assessment: Moderate/High Risk (score >= 2) Caprini Risk Assessment Model: Point Value = 1 Point Value = 2 Point Value = 3 Point Value = 5 Age 41-60 Minor surgery BMI > 25 kg/m2 Swollen legs Varicose veins or History of unexplained or recurrent spontaneous Oral contraceptives or hormone replacement Sepsis (< 1 month) Serious lung disease, including pneumonia (< 1 month) Abnormal pulmonary function Acute myocardial infarction Congestive heart failure (< 1 month) History of inflammatory bowel disease Medical patient at bed rest Age 61-74 Arthroscopic surgery Major open surgery (> 45 min) Laparoscopic surgery (> 45 min) Malignancy Confined to bed (> 72 hours) Immobilizing plaster cast Central venous access Age >= 75 History of VTE Family history of VTE Factor V Leiden Prothrombin [id number] Lupus anticoagulant Anticardiolipin antibodies Elevated serum homocysteine Heparin-induced thrombocytopenia Other congenital or acquired thrombophilia Stroke (< 1 month) Elective arthroplasty Hip, pelvis, or leg fracture Acute spinal cord injury (< 1 month) Prophylaxis Regimen: Total Risk Factor Score Risk Level Prophylaxis Regimen 0-1 Low Early ambulation 2 Moderate Order ONE of the following: *Sequential Compression Device (SCD) *Heparin 5000 units SQ BID 3-4 Higher Order ONE of the following medications: *Heparin 5000 units SQ TID *Enoxaparin/Lovenox 40 mg SQ daily (WT < 150 kg, CrCl > 30 mL/min) *Enoxaparin/Lovenox 30 mg SQ daily (WT < 150 kg, CrCl > 10-29 mL/min) *Enoxaparin/Lovenox 30 mg SQ BID (WT < 150 kg, CrCl > 30 mL/min) AND/OR *Sequential Compression Device (SCD) 5 or more Highest Order ONE of the following medications: *Heparin 5000 units SQ TID (Preferred with Epidurals) *Enoxaparin/Lovenox 40 mg SQ daily (WT < 150 kg, CrCl > 30 mL/min) *Enoxaparin/Lovenox 30 mg SQ daily (WT < 150 kg, CrCl > 10-29 mL/min) *Enoxaparin/Lovenox 30 mg SQ BID (WT < 150 kg, CrCl > 30 mL/min) AND *Sequential Compression Device (SCD) Assessment and Plan - Plan Chest pain, IVDU (intravenous drug user) Poss endocarditis Bacterial skin infection The patient was initially provided normal saline 1 L IV fluid bolus, cont IVF Blood cx, wound cultures obtained Started IV abx Zosyn and vancomycin for broad-spectrum antibiotic coverage. ESR and CRP are elevated. EKG reviewed shows sinus bradycardia rate of 59, QRS duration is 125 ms with an intraventricular conduction delay, QTC [address] segment elevation is noted. T waves are inverted in V1. Consider ID consult Counselled regarding IVDU No signs of withdrawals at this time. Monitor Restart home meds as appropriate DVt ppx ambulation Discussed Condition With: pt, nurse
[2018-03-02] MEDS: Senna/Docusate Sodium 8.6/50 MG Tablet PO SCH ×2 (09:56→20:06)
[2018-03-02] MEDS: Piperacil/Tazo 3.375 GM Premix 50 ML IV.SIG SCH ×3 (09:56→20:06)
[2018-03-02] MEDS: Vancomycin Inj 1,250 MG in Sodium Chlor 0.9% Inj 250 ML IV.SIG SCH ×2 (13:31→20:05)
--- NOTE | 2018-03-02 14:01 | ECG ---
Date Performed: 03/02/2018 Time Performed: 03:15:10 PTAGE: 32 years EKG: SINUS BRADYCARDIA POSSIBLE RIGHT VENTRICULAR CONDUCTION DELAY NONSPECIFIC ST ELEVATION BORD DARELL ECG Since the PREVIOUS TRACING , no significant change noted PREVIOUS TRACIN01/30/2017 11.40 DOCTOR: Shai Quintanilla Interpretating Date/Time 03/02/2018 13:59:50
[2018-03-02 14:51] LABS: Amphetamine Screen,Urine Neg (Neg); Barbiturate Screen,Urine Neg (Neg); Cannabinoid Screen,Urine Neg (Neg); Cocaine Screen,Urine Pos (Neg)
[2018-03-02 15:09] LABS: Amorphous Sediment,Urine Occasional /hpf; Bacteria,Urine Rare /hpf; Bilirubin,Urine Negative (Negative); Clarity,Urine Hazy (Clear); Color,Urine Yellow (Yellw/Straw); Glucose,Urine (UA) Negative (Negative); Leukocyte Esterase,Urine Negative (Negative); Nitrite,Urine Negative (Negative); Specific Gravity,Urine 1.015 (1.002-1.035)
[2018-03-02 15:11] LABS: Opiate Screen,Urine Pos (Neg)
[2018-03-03] MEDS: Sod Chloride 0.9% Inj 1,000 ML IV.CONT SCH ×3 (02:19→12:08)
[2018-03-03] MEDS: Vancomycin Inj 1,250 MG in Sodium Chlor 0.9% Inj 250 ML IV.SIG SCH ×2 (03:43→12:17)
[2018-03-03] MEDS: Piperacil/Tazo 3.375 GM Premix 50 ML IV.SIG SCH ×2 (03:43→09:04)
[2018-03-03 06:55] LABS: Chloride 104 meq/L (98-107); Potassium 3.8 meq/L (3.5-5.1); Sodium 139 meq/L (136-145)
[2018-03-03 07:00] LABS: Baso # (Auto) 0.1 th/mm3 (0.0-0.2); Baso % (Auto) 0.8 % (0.0-2.0); Calcium 8.9 mg/dL (8.5-10.1); Eos # (Auto) 0.2 th/mm3 (0.0-0.4); Eos % (Auto) 2.1 % (0.0-4.0); Hematocrit 44.3 % (39.0-51.0); Hemoglobin 15.3 gm/dL (13.0-17.0); Lymph # (Auto) 1.4 th/mm3 (1.0-4.8); Lymph % (Auto) 15.9 % (9.0-44.0); Mean Corpuscular HGB Conc 34.5 % (32.0-36.0); Mean Corpuscular Hemoglobin 31.4 pg (27.0-34.0); Mean Corpuscular Volume 91.1 fL (80.0-100.0); Mean Platelet Volume 9.5 fL (7.0-11.0); Mono # (Auto) 0.6 th/mm3 (0.0-0.9); Neut # (Auto) 6.5 th/mm3 (1.8-7.7); Neut % (Auto) 74.2 % (16.0-70.0); Platelet Count 335 th/mm3 (150-450); Red Blood Count 4.86 mil/mm3 (4.50-5.90); Red Cell Distribution Width 13.5 % (11.6-17.2); White Blood Count 8.8 th/mm3 (4.0-11.0)
[2018-03-03 07:01] LABS: Anion Gap 10 meq/L (5-15); Blood Urea Nitrogen 10 mg/dL (7-18); Carbon Dioxide 25.2 meq/L (21.0-32.0); Glucose,Random 81 mg/dL (74-106)
[2018-03-03 07:05] LABS: Glomerular Filtration Rate Greater Than 89 mL/min (>89)
[2018-03-03] MEDS: Senna/Docusate Sodium 8.6/50 MG Tablet PO SCH (09:10)
[2018-03-03] MEDS ORDERED: Pharmacy Ordered Lab Info OTHER ONE (11:45)
--- NOTE | 2018-03-03 15:08 | P.PN ---
Subjective Interval history: 32-year-old male who is seen and examined today for follow-up on chest pain, IV drug use. Patient denies any chest pain at this time. Denies any shortness of breath, nausea, vomiting, diaphoresis, fever, chills. Patient has been afebrile since presentation. Patient has not developed any leukocytosis. Cardiac enzymes have remained stable. Vital signs are stable. Physical Exam Vital signs: Vital Signs 03/02/18 17:24 03/02/18 17:53 03/02/18 20:00 Temperature 98.8 F 97.8 F Pulse Rate 58 L 65 Respiratory Rate 16 22 20 Blood Pressure 136/65 128/58 L Pulse Oximetry 96 95 03/03/18 00:00 03/03/18 12:00 Temperature 97.5 F L 96.3 F L Pulse Rate 79 84 Respiratory Rate 20 20 Blood Pressure 148/87 H 149/73 H Pulse Oximetry 97 100 Intake & Output 03/02/18 03/03/18 03/03/18 18:59 06:59 18:59 Intake Total 1362.5 / 1362.5 1865.0 / 1865.0 313.5 / 313.5 Balance 1362.5 / 1362.5 1865.0 / 1865.0 313.5 / 313.5 Weight 77.2 kg Intake: IV 1362.5 / 1362.5 1625.0 / 1625.0 313.5 / 313.5 NS Inj 1,000 ML @ 100 mls/hr IV 1000 / 1000 1000 / 1000 .CONT .Q10H VASQUEZ Rx#:[id number] Zosyn 3.375 GM Premix 50 ML @ 100 / 100 100 / 100 51 / 51 100 mls/hr IV.SIG Q6H VASQUEZ Rx#: [id number] Vancomycin Inj 1,250 MG In NS 262.5 / 262.5 525.0 / 525.0 262.5 / 262.5 Inj 250 ML @ 250 mls/hr IV.SIG Q8H VASQUEZ Rx#:[id number] Oral 240 / 240 Other: # Voids 2 Narrative: GENERAL: Well-developed, well-nourished, in no acute distress. alert and orientated HEENT: Head is normocephalic without any lesions or masses noted. Facial features are symmetric. Eyes: Extraocular muscles are intact. Conjunctivae were clear. NECK: Supple without any masses. Trachea midline no deviation. No JVD, CARDIAC: Regular rhythm, regular rate. S1/S2 are heard. No murmurs gallops or rubs. LUNGS: Clear to auscultation bilaterally. No wheeze, rhonchi or rales. No use of accessory muscles on inspiration or expiration. ABDOMEN: Soft, nontender. Nondistended. Bowel sounds heard in all 4 quadrants. No organomegaly or masses. Negative rebound, negative guarding EXTREMITIES: No edema, pulses are equal bilaterally. No cyanosis or clubbing NEUROLOGY: Mood and affect appear appropriate. Cranial nerves II through XII grossly intact. Moving all extremities, speech is clear Results - Labs CBC & Chem 7: 03/03/18 04:50 03/03/18 04:50 Laboratory Results - last 24 hr 03/02/18 03/02/18 03/03/18 13:30 13:30 04:50 CBC w Diff Auto diff final WBC 8.8 RBC 4.86 Hgb 15.3 Hct 44.3 MCV 91.1 MCH 31.4 MCHC 34.5 RDW 13.5 Plt Count 335 MPV 9.5 Neut % (Auto) 74.2 H Lymph % (Auto) 15.9 [place] % (Auto) 7.0 Eos % (Auto) 2.1 Baso % (Auto) 0.8 Neut # (Auto) 6.5 Lymph # (Auto) 1.4 [place] # (Auto) 0.6 Eos # (Auto) 0.2 Baso # (Auto) 0.1 WBC Differential . Differential Comment . Sodium Potassium Chloride Carbon Dioxide Anion Gap BUN Creatinine Estimated GFR Random Glucose Calcium Troponin I Urine Color Yellow Urine Clarity Hazy H Urine pH 8.0 Ur Specific [place] 1.015 Urine Protein Negative Urine Glucose (UA) Negative Urine Ketones Negative Urine Occult Blood Negative Urine Nitrate Negative Urine Bilirubin Negative Urine Urobilinogen Less than 2 Ur Leukocyte Esterase Negative Urine RBC 1 Urine WBC 1 Amorphous Sediment Occasional H Urine Bacteria Rare H Micro UA Comment Culture not ind Ur Microscopic Review Not Reportable Urine Culture Comments Culture not ind Vancomycin Trough Urine Opiates Screen Pos H Ur Barbiturates Screen Neg Ur Amphetamines Screen Neg U Benzodiazepines Scrn Neg Urine Cocaine Screen Pos H U Cannabinoids Screen Neg 03/03/18 03/03/18 03/03/18 04:50 12:00 12:00 CBC w Diff WBC RBC Hgb Hct MCV MCH MCHC RDW Plt Count MPV Neut % (Auto) Lymph % (Auto) [place] % (Auto) Eos % (Auto) Baso % (Auto) Neut # (Auto) Lymph # (Auto) [place] # (Auto) Eos # (Auto) Baso # (Auto) WBC Differential Differential Comment Sodium 139 Potassium 3.8 Chloride 104 Carbon Dioxide 25.2 Anion Gap 10 BUN 10 Creatinine 0.87 Estimated GFR Greater than 89 Random Glucose 81 Calcium 8.9 Troponin I Less than 0.02 L Urine Color Urine Clarity Urine pH Ur Specific [place] Urine Protein Urine Glucose (UA) Urine Ketones Urine Occult Blood Urine Nitrate Urine Bilirubin Urine Urobilinogen Ur Leukocyte Esterase Urine RBC Urine WBC Amorphous Sediment Urine Bacteria Micro UA Comment Ur Microscopic Review Urine Culture Comments Vancomycin Trough 11.8 H Urine Opiates Screen Ur Barbiturates Screen Ur Amphetamines Screen U Benzodiazepines Scrn Urine Cocaine Screen U Cannabinoids Screen Microbiology 03/02/18 02:55 Blood - Peripheral Aerobic Blood Culture - Preliminary No growth in 1 day 03/02/18 02:55 Blood - Peripheral Anaerobic Blood Culture - Preliminary No growth in 1 day 03/02/18 03:00 Blood - Peripheral Aerobic Blood Culture - Preliminary No growth in 1 day 03/02/18 03:00 Blood - Peripheral Anaerobic Blood Culture - Preliminary No growth in 1 day Assessment and Plan - Plan Chest pain, atypical -Patient with risk factors to include tobacco use -Patient had been ruled out for acute coronary event with serial cardiac enzymes which have remained negative -EKG did not indicate any acute abnormality and no change since 2017 IV drug user -Patient has history of bacteremia, patient with shortness of breath and chest discomfort. Possible underlying bacteremia and endocarditis -Patient is afebrile, no leukocytosis to indicate acute infection -Patient does have elevated C-reactive protein, sed rate -Blood cultures negative for 1 day -Awaiting echocardiogram DVT prevention -Low risk, early ambulation Discharge Planning: Patient left AGAINST MEDICAL ADVISE
== END 2018-03-03 15:41 | disposition left against medical advice (07) ==
LOC: NEPE 23:16 → NEDA 23:16 → NEDH 03-02 16:28 → PH3 03-02 16:51
PROVIDERS: ADMIT Hospitalist; ATTEND Hospitalist